=== PATIENT | female | born 1965 | race Caucasian/White ===

== ENCOUNTER 2021-03-04 13:30 | Emergency (ER) | payer BC, SELFPAY ==
--- NOTE | ~2021-03-04 | XR_ITS ---
EXAMINATION: XR tibia fibula LT 2V DATE: 03/04/2021 13:54 INDICATION: Left lower leg injury. TECHNIQUE: 2 views of left tibia and fibula were obtained. COMPARISON: None. FINDINGS: Bone alignment is normal. No fracture. There is mild left knee osteoarthritis. There is sof t tissue swelling anterior to tibial diaphysis. IMPRESSION: 1. No fracture. Reviewed, dictated and finalized at location A. IMPRESSION: 1. No fracture.
[2021-03-04 13:38] VITALS: BP 148/84; PULSE 113; RESP 16; TEMP 36.9; O2SAT 98
--- NOTE | 2021-03-04 13:39 | ED.LOWEXIN ---
HPI - Extremity Injury (Lower) General Chief Complaint: Extremity Injury, Lower Stated Complaint: left leg injury Time Seen by Provider: 03/04/21 13:42 Source: patient and RN notes reviewed Mode of arrival: ambulatory Limitations: no limitations History of Present Illness HPI Narrative: 56-year-old female presents with concern for injury to her left anterior lower leg. Reports she fell and hit the leg on a wooden ramp 5 days ago causing bruising, laceration. She reports anterior swelling. Reports no pain at rest or to touch. Reports some pain with initial weightbearing, reports pain improves after walking. Reports she has been using Neosporin and a bandage. She denies any redness, purulent drainage. Reports clear drainage. MD complaint: leg injury Related Data Home Medications Medication Instructions Recorded Confirmed diltiazem HCl 240 mg PO DAILY 03/04/21 03/04/21 pantoprazole 40 mg PO QAM 03/04/21 03/04/21 Allergies Allergy/AdvReac Type Severity Reaction Status Date / Time amoxicillin [From Amoxil] Allergy Hives Verified 03/04/21 13:47 Review of Systems Review of Systems: Narrative: CONSTITUTIONAL: Denies malaise, chills, sweats, or fever. CARDIOVASCULAR: Denies chest pain, palpitations, or edema. RESPIRATORY: Denies cough or dyspnea. SKIN: Reports anterior left lower leg abrasion, swelling, bruising MUSCULOSKELETAL: Reports left lower leg pain NEUROLOGIC: Denies numbness, weakness All systems reviewed & are unremarkable except as noted in HPI and below PMFSH Comments At time of signature, agree with nursing past medical, surgical, social and family history. There is no relevant family history pertinent to the presenting complaint Exam Narrative: Exam Narrative: GENERAL: Well-appearing, well-nourished, and in no acute distress. HEAD: Normocephalic, atraumatic. EYES: PERRLA, conjunctivae clear NECK: Supple. CHEST: Speaks in full sentences. No respiratory distress. HEART: Regular rate and rhythm. Normal and equal peripheral pulses. EXTREMITIES: Left leg has normal strength and sensation, normal range of motion. 13 x 8 anterior localized edema and ecchymosis consistent with hematoma. Normal sensation with sensitivity to light touch and pain. No point tenderness. No open wounds, no skin tenting, no devitalized tissue or atrophy, no trophic changes, no obvious deformity, alignment normal, nearby joints and structures intact. Distal pulses palpable and equal bilaterally, skin warm, dry, pink. Capillary refill less than 3 seconds. SKIN: Warm, dry, no rash. NEURO: Alert and oriented x3. PSYCH: Normal mood and affect Course Course Emergency Course: Patient is aware of diagnosis, understands and agrees to treatment plan. Anticipatory guidance given. Patient agrees to follow-up as directed and is aware of reasons to seek care at the emergency department. Portions of this record may have been created with voice recognition software Vital Signs Vital signs: Reviewed. MDM - Extremity Injury (Lower) MDM Narrative Medical decision making narrative: Patients injury and pain is consistent with musculoskeletal etiology. No signs of neurological or vascular compromise on exam. Compartments and tissues are soft without signs of compartment syndrome. Pain is felt appropriate for further evaluation on an outpatient basis. Imaging Data My impression: Images reviewed, interpreted by radiologist, agree, see report. Radiologist's impression: EXAMINATION: XR tibia fibula LT 2V DATE: 03/04/2021 13:54 INDICATION: Left lower leg injury. TECHNIQUE: 2 views of left tibia and fibula were obtained. COMPARISON: None. FINDINGS: Bone alignment is normal. No fracture. There is mild left knee osteoarthritis. There is soft tissue swelling anterior to tibial diaphysis. IMPRESSION: 1. No fracture. Critical Care Time Critical Care Time Critical Care Time: No Discharge Plan Discharge Clinical Impression: Hematoma of left lower
== END 2021-03-04 14:14 | disposition home or self-care (01) ==
PROVIDERS: Emergency Provider Nurse Practitioner; PCP Internal Medicine Geriatric Medicine
DX: S80.12XA Contusion of left lower leg, initial encounter (principal); W19.XXXA Unspecified fall, initial encounter; I10 Essential (primary) hypertension; K21.9 Gastro-esophageal reflux disease without esophagitis; Z90.711 Acquired absence of uterus with remaining cervical stump; Z85.41 Personal history of malignant neoplasm of cervix uteri
CPT/HCPCS: 73590; 99213; G0463

== ENCOUNTER 2025-03-05 13:50 | Emergency (ER) | payer BC, SELFPAY ==
[2025-03-05 13:53] VITALS: BP 147/106; PULSE 94; RESP 16; TEMP 36.4; O2SAT 99
[2025-03-05 13:58] VITALS: BP 179/104
--- OUTSIDE RECORDS SUMMARY | 2025-03-05 14:03 | XMS_ITS | Encounter Summary ---
Author Organization [facility] Address [address] [place] [address] Phone Care Team Providers Care Rn Pediatric Icu Name Role Phone Senait Campa APRN, CNP Primary Care Provid er Reason for Visit * Reason Comments Medication Refill Encounter Details Date Type Department Care Team (Late st Contact Info) Description 05/21/2024 Refill [facility] - [facility] Medicine [facility] [address] [place] [id number] Cezar Barclay MD [address] [id number] Medication Refill Social History Tobacco Use Types Packs/Day Years Used Date Smoking Tobacco: Every Day Cigarettes 1 30 Smokeless Tobacco: Never Alcohol Use Standard Drinks/Week Comments Yes 7 (1 standard drink = 0.6 oz pur e alcohol) 2-3 cocktails per night [facility] Utilities Answer Date Recorded In the past 12 months has [facility] electric, gas, oil, or water company threatened to shut off services in your home? No 11/20/2023 Social Connection and Isolation Panel Answer Date Recorded In a typical week, how many times do you talk on the phone with family, friends, or neighbors? More than three times a week 11/20/2023 How often do you get togethe r with friends or relatives? Three times a week 11/20/2023 How often do you attend [facility] or hoahaoism services? More than 4 times per year 11/20/2023 Do you belong to any clubs o r organizations such as cheondoism groups, unions, fraternal or athletic groups, or school groups? Yes 11/20/2023 How often do you attend meet ings of the clubs or organizations you belong to? More than 4 times per year 11/20/2023 Are you , , di vorced, , never , or living with a partner? Never 11/20/2023 AUDIT-C Answer Date Recorded Q1: How often do you have a drink containing alcohol? 4 or more times a week 11/20/2023 Q2: How many drinks containi ng alcohol do you have on a typical day when you are drinking? 1 or 2 Q3: How often do you have si x or more drinks on one occasion? Less than monthly 11/20/2023 Overall Financial Resource Strain (CARDIA) Answe r Date Recorded How hard is it for you to pa y for the very basics like food, housing, medical care, and heating? Not hard at all 11/20/2023 PHQ-2 Answer Date Recorded Total Score - Questions 1-9 0 10/27 [facility] - Occupational Stress Questionnaire Answer Date Recorded Do you feel stress - tense, restless, nervous, or anxious, or unable to sleep at night because your mind is troubled all the time - these days? Rather much 11/20/2023 Exercise Vital Sign Answer Date Recorde d On average, how many days pe r week do you engage in moderate to strenuous exercise (like a brisk walk)? 2 days 11/20/2023 On average, how many minutes do you engage in exercise at this level? 10 min 11/20/2023 Hunger Vital Sign Answer Date Recorded Within the past 12 months, y ou worried that your food would run out before you got the money to buy more. Never true 11/20/19 24 Within the past 12 months, t he food you bought just didn't last and you didn't have money to get more. Never true 11/20/2023 PRAPARE - Transportation Answer Date Re corded In the past 12 months, has l ack of transportation kept you from medical appointments or from getting medications? No 10/27 In the past 12 months, has l ack of transportation kept you from meetings, work, or from getting things needed for daily living? No 11/20/2023 Housing Stability Vital Sign Answer Ephraim e Recorded In the last 12 months, was t here a time when you were not able to pay the mortgage or rent on time? No 11/20/2023 In the last 12 months, how many places have you lived? 1 11/20/2023 In the last 12 months, was t here a time when you did not have a steady place to sleep or slept in a senior living (including now)? No 11/20/2023 Education Answer Date Recorded What is the highest level of school you have completed or the highest degree you have received? Associate degree: occupational, technical, or vocational program 04/04/2022 Sexually Active Control Partners Comments Not Currently Comments No Sex and Gender Information Value Date Recorded Sex Assigned at Not on file Legal Sex Female 11:38 PM CDT Gender Identity Female 07/16/2023 1:26 PM [employer] Sexual Orientation Not on file documented as of this encounter Miscellaneous Notes * Telephone Encounter - Marcella Burch RN - 05/22/2024 8:22 AM CDT Images from the original note were not included. hydroCHLOROthiazide Dispensed Days Supply Quantity Provider Pharmacy HYDROCHLOROT 25MG TAB 05/16/2024 90 90 Cezar Barclay MD [facility] [id number] [facility] ... HYDROCHLOROTHIAZIDE 25 MG TAB 02/19/2024 90 90 Cezar Barclay MD [facility] [id number] [facility] documented in this encounter Plan of Treatment Upcoming Encounters Date Type Department Care Team (Late st Contact Info) Description 05/27/2025 2:30 PM CDT Office Visit [facility] - Family Medicine - [place] [address] [place] [phone] Senait Campa APRN, [employer] [address] [phone] documented as of this encounter Visit Diagnoses Not on filedocumented in this encounter Additional Health Concerns Assessment Noted Time PHQ-9 Depression Total Score: 0 11/21/19 24 2:23 PM CDT documented as of this encounter Care Teams Rn Pediatric Icu Relationship Specialty Start Date End Date Senait Campa APRN, [facility] [address] [phone] PCP - General Advanced Practice Nurse 07/26/22 documented as of this encounter
--- OUTSIDE RECORDS SUMMARY | 2025-03-05 14:03 | XMS_ITS | Clinical Summary ---
Author Organization [facility] Address [address] [place] [address] Care Team Providers Care Aba Tutor Name Role Phone Nazia Terry MD Unavailable Sagrario Long MD Unavailable [phone] Senait Campa NP Primary Care Provider + Allergies Active Allergy Reactions Criticality Noted Date Comments Amoxicillin Rash Medium Losartan Diarrhea Low 04/24/2019 Medications b complex vitamins capsule Take 1 capsule by mouth daily. Active cyanocobalamin (Vitamin B-12) 1,000 mcg tablet Take 1 tablet (1,000 mcg total) by mouth daily 90 tablet 3 0 Active ammonium lactate (AMLACTIN) 12 % creamIndication s:Dry skin dermatitis APPLY TO AFFECTED AREA EVERY DAY 385 g [address] (PROTONIX) 40 mg EC tabletIndicatio ns:GERD with stricture Take 1 tablet (40 mg total) by mouth daily 90 tablet 3 1 Active cholecalciferol (VITAMIN D-3) 2000 unit capsule TAKE 1 CAPSULE BY MOUTH EVERY DAY 90 capsule 3 1 Active albuterol HFA (PROVENTIL HFA,VENTOLIN HFA,PROAIR HFA) 90 mcg/actuation inhalerIndicati ons:Wheezing INHALE 2 PUFFS EVERY 4 HOURS NEEDED FOR WHEEZING OR SHORTNESS OF BREATH 8.5 Inhaler 1 Active fluticasone propionate (FLONASE) 50 mcg/actuation nasal sprayIndication s:Chronic rhinitis USE 2 SPRAYS IN EACH NOSTRIL ONCE DAILY 48 mL 3 1 Active venlafaxine XR (EFFEXOR-XR) 37.5 mg 24 hr capsuleIndicati ons:Night sweats TAKE 1 CAPSULE BY MOUTH EVERY DAY 90 capsule 1 Active dilTIAZem CD 240 mg 24 hr capsuleIndicati ons:Benign hypertension,Pa lpitations TAKE 1 CAPSULE BY MOUTH NIGHTLY 90 capsule 1 1 Active Active Problems Problem Noted Date Diagnosed Date Hematoma 03/23/2021 Left elbow pain 06/23/2020 Palpitations 06/23/2020 Night sweats 04/07/2020 Elevated LFTs 04/07/2020 History of adenomatous polyp of colon 10/31/2019 Overview (10/31/2019): Added automatically from request for surgery [id number] Family history of colon cancer in mother 020 Overview (10/31/2019): Added automatically from request for surgery [id number] Menopausal syndrome (hot flashes) 09/20/2017 Benign hypertension 06/28/2017 Chronic rhinitis 06/24/2017 Knee pain 02/01/2017 Family history of colon cancer 01/11/2014 Overview (11/30/2016): Family history of colon cancer History of cervical cancer 01/11/2014 Overview (06/24/2017): Cervical cancer multicentric inside of [place] [address] Mcwilliams treated by Dr. Irizarry with vaginal hysterectomy 2008. Follow-up Pap smears test -[address] Mcwilliams Hx of adenomatous colonic polyps 01/11/2014 Overview (06/24/2017): Mother has Rectal cancer. Adenomatous colon polyp colonoscopy (+) 2008 Dr. Davis, colonoscopy test -[address] Peñaloza Tobacco dependence syndrome 01/11/2014 Overview (12/01/2016): Tobacco abuse GERD with stricture 01/11/2014 Overview (09/10/2017): GERD with stricture has required dilatation x2 2008, and 2014: 2008 GERD ring dilatation POSTPROCEDURE DIAGNOSES: 1. Dysphagia with evidence of distal esophageal ring, status post dilatation to 60 Vincentian. 2. Gastroesophageal reflux disease. Dr. Cruz Peñaloza 2013 EGD ring dilatation GERD (gastroesophageal reflux disease) lower esophageal ring 2013 PREPROCEDURE DIAGNOSES 1. Dysphagia to solids in a 48-year-old female. 2. Gastroesophageal reflux disease. POSTPROCEDURE DIAGNOSES 1. Distal esophageal ring with dysphagia to solids, status post balloon dilatation to the 20 mm balloon. 2. Gastroesophageal reflux disease with erosions to the distal esophagus. The patient also had a ringed appearance to her esophagus with whitish debris status post biopsies throughout. 3. Antritis with erosions with negative CLOtest. PHYSICIAN Cruz Peñaloza M.D. Mild chronic obstructive pulmonary disease 01/11 Overview (12/03/2016): COPD, mild Carcinoma of cervix 06/01/2012 Encounters Date Type Department Care Team Description 02/14/2025 1:40 PM CDT - 02/14/2025 11:59 PM CDT Hospital Encounter [facility] [address] [place] [address] Discharge Disposition: Discharge to home or self care 02/14/2025 1:39 PM CDT - 02/14/2025 11:59 PM CDT Hospital Encounter [facility]) [address] [place] [address] Discharge Disposition: Discharge to home or self care from Last 3 Months Immunizations Immunization Administration Dates Next Due MMR 05/08/2019 Tdap 03/12/2021,03/28/2010 Surgical History Surgery Date Site/Laterality Comments KNEE ARTHROSCOPY 08/28/1980 - 08/27/1981 BREAST BIOPSY 08/28/2006 - 08/27/2007 Left microcalcification otherwise (-) [facility] TOTAL VAGINAL HYSTERECTOMY 08/28/2006 - 08/27/2007 cervical cancer ARM SURGERY 08/28/1990 - 08/27/1991 Right fell through glass; large, deep laceration COLONOSCOPY W/ BIOPSIES AND POLYPECTOMY 03/28/2009 - 04/27/2009 (+) Dr. Peñaloza tubular adenoma due every 5 years POLYPECTOMY COLONOSCOPY 04/08/2015 Dr. Peñaloza (-) COLONOSCOPY 04/14/2020 (-) Dr. Long, due in 5 years family history of colon cancer Medical History Medical History Date Comments Cervical cancer (HCC) 08/31/2006 Dysphagia 2009 COPD (chronic obstructive pulmonary disease) (HC C) Hypertension GERD with stricture Colon polyp Family History Medical History Relation Name Comments Heart attack Father COD at age 56 Diabetes Maternal Grandmother Hypertension Maternal Grandmother Lung cancer Maternal Grandmother Stroke Maternal Grandmother Colon cancer Mother Diabetes Mother Hypertension Mother Heart attack Mother's Brother 1 Stroke Mother's Brother 2 Breast cancer Paternal Grandmother Hypertension Sister Relation Name Status Comments Father (Age 56) Maternal Grandmother Mother Mother's Brother 1 Mother's Brother 2 Paternal Grandmother Sister Social History Tobacco Use Types Packs/Day Years Used Date Smoking Tobacco: Every Day Cigarettes 0.7 38.5 Started: 1986 Smokeless Tobacco: Never Tobacco Cessation:Ready to Q uit: No; Counseling Given: Yes Alcohol Use Standard Drinks/Week Comments Yes 0 (1 standard drink = 0.6 oz pur e alcohol) AUDIT-C Answer Date Recorded Q1: How often do you have a drink containing alc ohol? 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 Not on file Not on file Not on file Obstetrics History Para Term AB IAB SAB Ectopic Multiple Livin g Live Births 0 0 0 0 0 0 0 0 0 0 0 Last Filed Vital Signs Vital Sign Reading Time Taken Comments Blood Pressure 160/104 04/07/2021 3:03 PM CDT Pulse 113 04/07/2021 3:03 PM CDT Temperature 36.6 C (97.8 F) 04/07/2021 3:03 PM CDT Respiratory Rate 18 04/07/2021 3:03 PM CDT Oxygen Saturation 97% 04/07/2021 3:03 PM CDT Inhaled Oxygen Concentration - - Weight 58.1 kg (128 lb) 04/07/2021 3:03 PM CDT Height 167.6 cm (5' 6) 03/23/2021 2:25 PM CDT Body Mass Index 20.66 03/23/2021 2:25 PM CDT Plan of Treatment Health Maintenance Due Date Last Done Comments Hepatitis B Screening 1983 Pneumococcal vaccine <65 (1 of 2 - PCV) 01/27/1984 Zoster Vaccine (1 of 2) 2015 Depression Screening 12/23/2021 12/23/2020 Regular Well Visit/Exam 18-64 12/23/2021, 10/30/2019, 09/04/2018, Additional history exists Influenza Vaccine (#1) 2025 11/21/2024 Breast Cancer Screening-Mammogram 06/20/2025 06/20/2024, 10/05/2022, 07/08/2021, Additional history exists Colon Cancer Screening-Colonoscopy 04/14/2030 04/14/2020, 04/08/2015, 04/08/2015 DTaP/Tdap/Td Vaccine (3 - Td or Tdap) 03/12/2031 03/12/2021, 03/28/2010 Cervical Cancer Screening Discontinued 11/15/2017 Hepatitis C Screening Completed 03/12/2020, 020 Colon Cancer Screening-CT Colonography Discontinued 04/14/2020, 04/08/2015, 04/08/2015 Colon Cancer Screening-DNA Stool Discontinued 04/14/2020, 04/08/2015, 04/08/2015 Colon Cancer Screening-FIT Discontinued 04/14, 04/08/2015, 04/08/2015 Colon Cancer Screening-Sigmoidoscopy Discontinued 04/14/2020, 04/08/2015, 04/08/2015 Procedures Procedure Name Priority Date/Time Associated Diagnosis Comments CT BODY OUTSIDE REFERENCE Routine 02/14/2025 1:[address] BODY OUTSIDE REFERENCE Routine 02/14/2025 1:39 PM CDT SCREENING MAMMOGRAM BILATERAL W BRADLEY Schedule Routine, Read Routine (OP Routine) 06/20/2024 1:53 PM CDT Screening mammogram, encounter for COLONOSCOPY 04/14/2020 7:31 AM CDT HEPATITIS C ANTIBODY Routine 03/12/2020 9:54 AM CDT Elevated liver function tests THINPREP IMAGING PAP AND HPV MRNA E6/E7 REFLEX HPV 16,18/45 Routine 11/15/2017 8:43 AM CDT from Last 3 Months or Most Recently Relevant to Health Maintenance Results * CT Body Outside Reference (02/14/2025 1:40 PM CDT) Impressions RAD_PACS_[facility] - 02/14/2025 1:40 PM CDT These images are for Reference purposes only and have not been reviewed by [facility]. There will be no report generated by a [facility] Radiologist. Narrative RAD_PACS_[facility] - 02/14/2025 1:40 PM CDT EXAMINATION: Images For Reference Purposes Only Cezar Blandon MD PhD IM CT PROCEDURES Desire l Result Performing Organization Address [facility] de Phone Number [facility] * CT Body Outside Reference (02/14/2025 1:39 PM CDT) Impressions RAD_[facility] - 02/14/2025 1:39 PM CDT These images are for Reference purposes only and have not been reviewed by [facility]. There will be no report generated by a [facility] Radiologist. Narrative RAD_PACS_[facility] - 02/14/2025 1:39 PM CDT EXAMINATION: Images For Reference Purposes Only Cezar Blandon MD PhD IMG CT PROCEDURES Desire l Result Performing Organization Address [facility] Co de Phone Number [facility]_P[facility] * Screening Mammogram Bilateral W Bradley (06/20/2024 1:53 PM CDT) Anatomical Region Laterality Modality Breast Bilateral Mammography Narrative 06/21/2024 12:38 PM CDT Mammogram Technique: Bilateral Digital Breast Tomosynthesis, Bilateral C-view 2D Screening mammogram. Views obtained: bilateral craniocaudal and bilateral mediolateral oblique. Computer Aided Detection was performed. Mammogram Findings: The present examination has been compared to prior imaging studies performed at [facility] on 05/28/2020, 07/08/2021 and 10/05/2022. The breasts are extremely dense, which lowers the sensitivity of mammography. There are calcifications in both breasts. There is no suspicious abnormality in either breast. Impression: There is no mammographic evidence of malignancy. Annual screening mammography is recommended. Consider breast MRI for supplemental screening given the patient's extremely dense breast tissue. OVERALL FINAL ASSESSMENT: BI-RADS CATEGORY 2: Benign. Procedure Note Celia Rahman MD - 06/21/2024 Mammogram Technique: Bilateral Digital Breast Tomosynthesis, Bilateral C-view 2D Screening mammogram. Views obtained: bilateral craniocaudal and bilateral mediolateral oblique. Computer Aided Detection was performed. Mammogram Findings: The present examination has been compared to prior imaging studies performed at [facility] on 05/28/2020, 07/08/2021 and 10/05/2022. The breasts are extremely dense, which lowers the sensitivity of mammography. There are calcifications in both breasts. There is no suspicious abnormality in either breast. Impression: There is no mammographic evidence of malignancy. Annual screening mammography is recommended. Consider breast MRI for supplemental screening given the patient's extremely dense breasttissue. OVERALL FINAL ASSESSMENT: BI-RADS CATEGORY 2: Benign. us Self Screening Mammogram IMG MAMMO PROCEDURES Fi nal Result * COLONOSCOPY (04/14/2020 7:31 AM CDT) Anatomical Region Laterality Modality Other Narrative Procedure Note Sagrario Long MD - 04/14/2020 7:31 AM CDT [facility] Patient Name: Stefani Verduzco Procedure Date: 04/14/2020 7:31 AM Date of : 1965 Admit Type: Outpatient Age: 55 Gender: Female Attending MD: Sagrario Long M.D. Room: [facility] ENDOSCOPY ROOM 1 Note Status: Finalized Patient Profile: This is a 55 year old female. The patient hashistory of adenoma polyps in the past. Her mother had colon cancer. Procedure: Colonoscopy Indications: Screening in patient at increased risk: Familyhistory of 1st-degree relative with colorectal cancer, High risk colon cancer surveillance: Personal history of colonic polyps, Last colonoscopy: March 2015 Referring MD: Renay Elmore M.D. Providers: Sagrario Long M.D. Impression: - The entire examined colon is normal. - Internal hemorrhoids. - No specimens collected. Recommendation: - Repeat colonoscopy in 5 years for screeningpurposes. - Continue present medications. Medicines: Monitored Anesthesia Care Complications: No immediate complications. Estimated Blood Loss: Estimated blood loss: none. Procedure: Pre-Anesthesia Assessment: - Prior to the procedure, a History and Physical was performed, and patient medications and allergieswere reviewed. The patient's tolerance of previous anesthesia was also reviewed. The risks and benefitsof the procedure and the sedation options and riskswere discussed with the patient. All questions were answered, and informed consent was obtained. Prior Anticoagulants: The patient has taken no previous anticoagulant or antiplatelet agents. ASA Grade Assessment: II - A patient with mild systemicdisease. After reviewing the risks and benefits, the patientwas deemed in satisfactory condition to undergo the procedure. The benefits, risks and alternatives of theprocedure and sedation were discussed and informed consent was obtained. All questions were answered. Please referto the signed informed consent document in the medical record. The bowel preparation used was Miralax. The bowel preparation used was bisacodyl tablets. Bowel prep was administered using a split dose. The scopewas passed under direct vision. The PediatricColonoscope [id number]-[id number] was introduced through the anusand advanced to the the cecum, identified by appendiceal orifice and ileocecal valve. The quality of thebowel preparation was excellent. Findings: The perianal and digital rectal examinations were normal. The cecum appeared normal. The colon (entire examined portion) appeared normal. No polyps and no mass lesions noted. Internal hemorrhoids were found during retroflexion. The hemorrhoids were small. Electronically signed by Sagrario Long M.D. Sagrario Long M.D. 04/14/2020 8:52:43 AM Number of Addenda: 0 Note Initiated On: 04/14/2020 7:31 AM Procedure Code(s): --- Professional --- 07622, Colonoscopy, flexible; diagnostic, including collection of specimen(s) by brushing or washing, when performed (separateprocedure) Diagnosis Code(s): --- Professional --- Z80.0, Family history of malignant neoplasm of digestive organs Z86.010, Personal history of colonic polyps K64.8, Other hemorrhoids CPT copyright 2017 [employer]. All rights reserved. The codes documented in this report are preliminary and upon hcc coders reviewmay be revised to meet current compliance requirements. Recognized by the [employer] for promoting quality in endoscopy Sagrario Long MD ENDOSCOPY PROCEDURES Final Result * Hepatitis C antibody (03/12/2020 9:54 AM CDT) Hep C Ab Nonreactive Nonreactive [facility] Comment: Interpretive Data Nonreactive: Antibodies to HCV not detected. Does NOT exclude the possibility of recent exposure to HCV. Equivocal: Equivocal for HCV antibodies. Supplemental molecular testing will be automatically performed to determine infection status in accordance with current CDC screening recommendations. Reactive: Positive for HCV antibodies. This may represent current or past HCV infection. Supplemental molecular testing will be automatically performed to determine current infection status in accordance with current CDC screening recommendations. Interpretive data was last revised on 2019. Blood specimen (specimen) 03/12/2020 9:54 AM CDT 03/12/2020 5:33 PM CDT Renay Elmore MD LAB MICROBIOLOGY - GENERAL ORDERABLES Edited Result - Final ANNITA [id number] [address] Department [place] [address] * ThinPrep Imaging Pap and HPV mRNA E6/E7 Reflex HPV 16,18/45 (11/15/2017 8:43 AM CDT) Report status CANCELED [facility] Comment:Result canceled by t yobani ancillary CLINICAL INFORMATION: [facility] Comment:Hysterectomy, total LMP NONE GIVEN [facility] Previous Pap NONE GIVEN [facility] Prev. Bx NONE GIVEN [facility] SOURCE: [facility] Comment:Cervix, Endocervix Pap, specimen adequacy [facility] Comment: SATISFACTORY FOR EVALUATION Source inconsistent with history provided Pap, general categorization CANCELED [facility] Comment:Result canceled by t yobani ancillary HPV interp [facility] Comment:Negative for intraep ithelial lesion or malignancy. Infection: CANCELED [facility] Comment:Result canceled by t yobani ancillary COMMENTS [facility] Comment: This Pap test has been evaluated with computer assisted technology. Cultural Centre Manager [facility] Comment: MIMA, CT(ASCP) CT screening location: [place] [address] Administration [place] [address] Review piercer CANCELED [facility] - Comment:Result canceled by t he ancillary Pathologist CANCELED [facility] - Comment:Result canceled by t he ancillary Comment [facility] - Comment: EXPLANATORY NOTE: The Pap is a screening test for cervical cancer. It is not a diagnostic test and is subject to false negative and false positive results. It is most reliable when a satisfactory sample, regularly obtained, is submitted with relevant clinical findings and history, and when the Pap result is evaluated along with historic and current clinical information. Human papillomavirus RNA, High Risk E6/E7 Not Detected Not Detected [facility] Comment: This test was performed using the APTIMA HPV Assay ([employer] This assay detects E6/E7 viral messenger RNA (mRNA) from 14 high-risk HPV types (16,18,31,33,35,39,45,51,52,56,58,59,66,68). 11/15/2017 8:43 AM CDT 11/16/2017 5:10 AM CDT Narrative Resulting Agency Comment Performing Organization Information: Site ID: Name: [facility] Address: [facility] Administration [place] [address] Director: Erica Terrell MD Renay Elmore MD LAB CYTOLOGY ORDERABLES Fi nal Result [facility] [place] from Last 3 Months or Most Recently Relevant to Health Maintenance Insurance [facility] [place] ACCESS OOS BLUE ACCESS OOS BLUE ACCESS OOS Member Subscriber Plan / Payer ( fective 2014-Present) Name:Stefani Verduzco Relation to Subscriber:Self Name:Stefani Verduzco Payer ID:[id number] ([facility]) Type:BC ALLIANCE Address: [facility] [id number] [place] [id number] Advance Directives For more information, please contact: [phone] Documents on File Type Date Recorded Patient Medical Assembly Expl anation ADVANCE DIRECTIVE 05/24/2011 POWER OF A TTORNEY ADVANCE DIRECTIVE 05/24/2011 POWER OF A TTORNEY-MEDICAL * Full Code (Latest Code Status on File) Date Activated Date Inactivated Comments 04/14/2020 7:39 AM 04/14/2020 1:34 PM * Full Code Date Activated Date Inactivated Comments 04/14/2020 7:39 AM 04/14/2020 7:39 AM Care Teams Aba Tutor Relationship Specialty Start Date End Date Senait Campa NP [address] [place] [address] [place] [address] PCP - General Nurse Practitioner 10/05/22 Nazia Terry MD [address] [place] [address] Director Life Sales Obstetrics and Gynecology 12/23/20 Sagrario Long MD [address] [place] [address] Consulting Physician Gastroenterology 12/23/20
--- OUTSIDE RECORDS SUMMARY | 2025-03-05 14:03 | XMS_ITS | Encounter Summary ---
Author Organization [facility] Address [address] [place] [address] Phone Care Team Providers Care Pest Control Specialist Name Role Phone Senait Campa APRN, CNP Primary Care Provid er Reason for Visit * Reason Onset Date Comments Shortness of Breath 09/27/2022 Encounter Details Date Type Department Care Team (Late st Contact Info) Description 09/27/2022 Telephone [facility] [address] [place] [address] Senait Campa APRN, [place] [address] [address] Shortness of Breath Social History Tobacco Use Types Packs/Day Years Used Date Smoking Tobacco: Every Day Cigarettes 1 30 Smokeless Tobacco: Never Alcohol Use Standard Drinks/Week Comments Yes 7 (1 standard drink = 0.6 oz pur e alcohol) PHQ-2 Answer Date Recorded Total Score - Questions 1-9 2 02/26 Education Answer Date Recorded What is the highest level of school you have completed or the highest degree you have received? Associate degree: occupational, technical, or vocational program 04/04/2022 Sexually Active Control Partners Comments Not Currently Comments No Sex and Gender Information Value Date Recorded Sex Assigned at Not on file Legal Sex Female 11:38 PM CDT Gender Identity Female 07/16/2023 1:26 PM [employer] Sexual Orientation Not on file COVID-19 Exposure Response Date Recorded In the last 10 days, have yo u been in contact with someone who was confirmed or suspected to have Coronavirus/COVID-19? No / Unsure 09/30/2022 3:34 PM KILN CLEANER documented as of this encounter Miscellaneous Notes * Telephone Encounter - Meredith Rush CNA - 09/27/2022 2:15 PM KILN CLEANER Patient states she is in touch with her office. CLEANER * Telephone Encounter - Christine Bishop APRN, CNP - 09/27/2022 1:58 PM KILN CLEANER She is not a patient in this office CLEANER * Telephone Encounter - Cheyanne Zamora RN - 09/27/2022 1:47 PM CST Patient is returning a missed call from the office. No documentation in EMR about a call today. Patient is aware of all other phone notes, and was seen yesterday in the office. She is wanting an appointment for a breathing treatment in the office today, as she is no different from yesterday when she was seen. No new or worsening symptoms to triage. No appointments available today. Please advise. CLEANER documented in this encounter Plan of Treatment Upcoming Encounters Date Type Department Care Team (Late st Contact Info) Description 05/27/2025 2:30 PM CDT Office Visit [facility] - Family Medicine - [place] [address] [place] [address] Senait Campa APRN, PHYSICAL TRAINER [address] [phone] documented as of this encounter Visit Diagnoses Not on filedocumented in this encounter Additional Health Concerns Infection Onset Date Last Indicated Resolved Time COVID - 19 10/27/2022 10/27/2022 10/28/2022 9:04 AM KILN CLEANER Respiratory Rule Out - RPA 10/27/2022 10/28/2022 0 10/28/2022 3:53 PM KILN CLEANER Assessment Noted Time PHQ-9 Depression Total Score: 2 03/25/20 22 4:00 PM CDT documented as of this encounter Care Teams Pest Control Specialist Relationship Specialty Start Date End Date Senait Campa APRN, PHYSICAL TRAINER [address] [phone] PCP - General Advanced Practice Nurse 07/26/22 documented as of this encounter
--- OUTSIDE RECORDS SUMMARY | 2025-03-05 14:03 | XMS_ITS | Encounter Summary ---
Author Organization [facility] Address [address] [place] [address] Phone Care Team Providers Care Analytics Intern Name Role Phone Senait Campa APRN, EDWIN Primary Care Provid er Reason for Visit * Reason Comments Medication Refill Encounter Details Date Type Department Care Team (Late st Contact Info) Description 05/21/2024 Refill [facility] - Family Medicine [facility] [address] [place] [address] Stefani Regalado PAC [address] [place] [address] Medication Refill Social History Tobacco Use Types Packs/Day Years Used Date Smoking Tobacco: Every Day Cigarettes 1 30 Smokeless Tobacco: Never Alcohol Use Standard Drinks/Week Comments Yes 7 (1 standard drink = 0.6 oz pur e alcohol) 2-3 cocktails per night [facility] Utilities Answer Date Recorded In the past 12 months has [employer] electric, gas, oil, or water company threatened [...] week 11/20/2023 How often do you attend chur ch or faith services? More than 4 times per year 11/20/2023 Do you belong to any clubs o r organizations such as jain groups, unions, fraternal or athletic groups, or [...] Total Score - Questions 1-9 0 10/27 [facility] of Occupat ional [facility] - Occupational Stress Questionnaire Answer Date Recorded [...] place to sleep or slept in a retirement (including now)? 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 traZODone HCl Dispensed Days Supply Quantity Provider Pharmacy TRAZODONE 100MG TAB 05/16/2024 90 90 Tab Stefani Regalado, PAC [facility] ... TRAZODONE 100 MG TABLET 02/12/2024 90 90 Stefani Regalado, PAC [facility] ... documented in this encounter Plan of Treatment Upcoming Encounters Date Type Department Care Team (Late st Contact Info) Description 05/27/2025 2:30 PM CDT [facility] - [place] [address] [place] [address] Senait Campa APRN, PSYCHOLOGICAL TESTS SALES AGENT #[address] [address] documented as of this encounter Visit Diagnoses Diagnosis Primary insomnia Persistent disorder of initiating or maintaining sleep documented in this encounter Additional Health Concerns Assessment Noted Time PHQ-9 Depression Total Score: 0 11/21/19 24 2:23 PM CDT documented as of this encounter Care Teams Analytics Intern Relationship Specialty Start Date End Date Senait Campa APRN, PSYCHOLOGICAL TESTS SALES AGENT #[address] [address] PCP - General Advanced Practice Nurse 07/26/22 documented as of this encounter
--- OUTSIDE RECORDS SUMMARY | 2025-03-05 14:03 | XMS_ITS | Encounter Summary ---
Author Organization [facility] Address [address] [place] [address] Phone Care Team Providers Care Pediatric Neurologist Name Role Phone Senait Campa APRN, CNP Primary Care Provid er Reason for Visit * Reason Comments Medication Refill Encounter Details Date Type Department Care Team (Late st Contact Info) Description 10/21/2023 [facility]ill [facility] [address]2 [place] [phone] Cezar Barclay MD #[address] [address] Medication Refill Social History Tobacco Use Types Packs/Day Years Used Date Smoking Tobacco: Every Day Cigarettes 1 30 Smokeless Tobacco: Never Alcohol Use Standard Drinks/Week Comments Yes 7 (1 standard drink = 0.6 oz pur e alcohol) 2-3 cocktails per night PHQ-2 Answer Date Recorded Total Score - [...] CDT Gender Identity Female 07/16/2023 1:26 PM 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 hydroCHLOROthiazide Dispensed Days Supply Quantity Provider Pharmacy HYDROCHLOROTHIAZIDE 25 MG TAB 10/12/2023 90 90 Each Cezar Barclay MD [facility] [address] [facility] ... HYDROCHLOROTHIAZIDE 25 MG TAB 07/17/2023 90 90 Each Cezar Barclay MD [facility] [address] [facility] ... 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 DESIGNER documented in this encounter Plan of Treatment Upcoming Encounters Date Type Department Care Team (Late st Contact Info) Description 05/27/2025 2:30 PM CDT Office Visit [facility] Group - Family Medicine [facility] [address]2 [place] [address] Senait Campa APRN, EDWIN #[address] [address] documented as of this encounter Visit Diagnoses Not on filedocumented in this encounter Additional Health Concerns Assessment Noted Time PHQ-9 Depression Total Score: 2 03/25/20 22 4:00 PM CDT documented as of this encounter Care Teams Pediatric Neurologist Relationship Specialty Start Date End Date Senait Campa APRN, CNP [address] [address] PCP - General Advanced Practice Nurse 07/26/22 documented as of this encounter
--- OUTSIDE RECORDS SUMMARY | 2025-03-05 14:03 | XMS_ITS | Encounter Summary ---
Author Organization [facility] Address [address] [place] [address] Phone Care Team Providers Care Bone Grinder Name Role Phone Senait Campa APRN, CNP Primary Care Provid er Reason for Visit * Reason Onset Date Comments Medication Refill 03/05/2025 Encounter Details Date Type Department Care Team (Late st Contact Info) Description 03/05/2025 MyChart RX Renewal [facility] - Family Medicine [facility] [address] [place] [address] Senait Campa APRN, CNP [address] [address] Medication Renewal Request Social History Tobacco Use Types Packs/Day Years Used Date Smoking Tobacco: Every Day Cigarettes 1 30 Smokeless Tobacco: Never Alcohol Use Standard Drinks/Week Comments Yes 9 (1 standard drink = 0.6 oz pure alcohol) 2-3 cocktails at night occasionally [facility] Utilities Answer Date Recorded In the past 12 months has [employer], gas, oil, or water company threatened to shut off services in your home? No 11/21/2024 Social Connection and Isolation Panel Answer Date Recorded In a typical week, how many times do you talk on the phone with family, friends, or neighbors? More than three times a week 11/21/2024 How often do you get togethe r with friends or relatives? Three times a week 11/21/2024 How often do you attend chur ch or protestant services? More than 4 times per year 11/21/2024 Do you belong to any clubs o r organizations such as latter-day groups, unions, fraternal or athletic groups, or school groups? Yes 11/21/2024 How often do you attend meet ings of the clubs or organizations you belong to? More than 4 times per year 11/21/2024 Are you , , di vorced, , never , or living with a partner? Never 11/21/2024 AUDIT-C Answer Date Recorded Q1: How often do you have a drink containing alcohol? 4 or more times a week 11/21/2024 Q2: How many drinks containi ng alcohol do you have on a typical day when you are drinking? 3 or 4 Q3: How often do you have si x or more drinks on one occasion? Monthly 11/21/2024 Overall Financial Resource Strain (CARDIA) Answe r Date Recorded How hard is it for you to pa y for the very basics like food, housing, medical care, and heating? Not hard at all 11/21/2024 PHQ-2 Answer Date Recorded Total Score - Questions 1-9 0 10/27 [facility] of Occupat ional Health - Occupational Stress Questionnaire Answer Date Recorded Do you feel stress - tense, restless, nervous, or anxious, or unable to sleep at night because your mind is troubled all the time - these days? Rather much 11/21/2024 Exercise Vital Sign Answer Date Recorde d On average, how many days pe r week do you engage in moderate to strenuous exercise (like a brisk walk)? 5 days 11/21/2024 On average, how many minutes do you engage in exercise at this level? 10 min 11/21/2024 Hunger Vital Sign Answer Date Recorded Within the past 12 months, y ou worried that your food would run out before you got the money to buy more. Never true 11/22/19 25 Within the past 12 months, t he food you bought just didn't last and you didn't have money to get more. Never true 11/21/2024 PRAPARE - Transportation Answer Date Re corded In the past 12 months, has l ack of transportation kept you from medical appointments or from getting medications? No 10/27 In the past 12 months, has l ack of transportation kept you from meetings, work, or from getting things needed for daily living? No 11/21/2024 Housing Stability Vital Sign Answer Ephraim e [...] place to sleep or slept in a group home (including now)? No 11/20/2023 Housing Stability Vital Sign Answer Ephraim e Recorded In the last 12 months, was t here a time when you were not able to pay the mortgage or rent on time? No 01/08/2025 In the past 12 months, how m any times have you moved where you were living? 0 01/08/2025 At any time in the past 12 m [facility], were you homeless or living in a group home (including now)? No 01/08/2025 Education Answer Date Recorded What is the highest level of school you have completed or the highest degree you have received? 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 Sexual Orientation Not on file documented as of this encounter Plan of Treatment Upcoming Encounters Date Type Department Care Team (Late st Contact Info) Description 05/27/2025 2:30 PM CDT Office Visit [facility] - Family Medicine - [place] [address] [place] [address] Senait Campa APRN, WARDROBE SPECIALIST [address] [address] documented as of this encounter Visit Diagnoses Not on filedocumented in this encounter Additional Health Concerns Assessment Noted Time PHQ-9 Depression Total Score: 0 11/22/19 25 2:05 PM CDT documented as of this encounter Care Teams Bone Grinder Relationship Specialty Start Date End Date Senait Campa APRN, EDWIN [address] [address] PCP - General Advanced Practice Nurse 07/26/22 documented as of this encounter
--- OUTSIDE RECORDS SUMMARY | 2025-03-05 14:03 | XMS_ITS | Referral Summary ---
Author Organization [facility] Address [address] [facility] [place] [address] Care Team Providers Care Lap Machine Tender Name Role Phone Nazia Terry MD Unavailable Sagrario Long MD Unavailable [phone] Senait Campa NP Primary Care Provider + Encounters Date Type Department Care Team Description 02/14/2025 1:40 PM CDT - 02/14/2025 11:59 PM CDT Hospital Encounter [facility] [address] [place] [address] Discharge Disposition: Discharge to home or self care 02/14/2025 1:39 PM CDT - 02/14/2025 11:59 PM CDT Hospital Encounter [facility]) [address] [place] [address] Discharge Disposition: Discharge to home or self care from Last 3 Months Allergies Active Allergy Reactions Criticality Noted Date [...] (10/31/2019): Added automatically from request for surgery [id number] Family history of colon cancer in mother 020 Overview (10/31/2019): Added automatically from request for surgery [id number] Menopausal syndrome (hot flashes) 09/20/2017 Benign hypertension [...] esophageal ring, status post dilatation to 60 [place]. 2. Gastroesophageal reflux disease. Dr. 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 There will be no report generated by a [facility] Radiologist. Narrative RAD_PACS_[facility] - 02/14/2025 1:40 PM CDT EXAMINATION: Images For Reference Purposes Only Cezar Blandon MD PhD IM CT PROCEDURES Desire l Result Performing Organization Address [facility] de Phone Number RAD_PACS_[facility] * CT Body Outside Reference (02/14/2025 1:39 PM CDT) Impressions RAD[facility] - 02/14/2025 1:39 PM CDT These images are for Reference purposes only and have not been reviewed by [facility] Radiology. There will be no report generated by a [facility] Radiologist. Narrative RAD_PACS_[facility] - 02/14/2025 1:39 PM CDT EXAMINATION: Images For Reference Purposes Only Cezar Blandon MD PhD IMG CT PROCEDURES Desire l Result Performing Organization Address [facility] Co de Phone Number RAD_PACS_[facility] * Screening [...] compared to prior imaging studies performed at [facility] on 05/28/2020, 07/08/2021 and 10/05/2022. The breasts [...] compared to prior imaging studies performed at [facility] on 05/28/2020, 07/08/2021 and 10/05/2022. The breasts [...] Female Attending MD: Sagrario Long M.D. Room: [facility] ENDOSCOPY ROOM 1 Note Status: Finalized Patient [...] passed under direct vision. The PediatricColonoscope [id number]-[id number] was introduced through the anusand advanced to [...] 7:31 AM Procedure Code(s): --- Professional --- 79323, Colonoscopy, flexible; diagnostic, including collection of specimen(s) by brushing or washing, when performed (separateprocedure) Diagnosis Code(s): --- Professional --- Z80.0, Family history of malignant neoplasm of digestive organs Z86.010, Personal history of colonic polyps K64.8, Other hemorrhoids CPT copyright 2017 [employer]. All rights reserved. The codes documented in this report are preliminary and upon head turning machine operator reviewmay be revised to meet current compliance requirements. Recognized by the [employer] for promoting quality [...] 9:54 AM CDT 03/12/2020 5:33 PM CDT us Renay Elmore MD LAB MICROBIOLOGY - GENERAL ORDERABLES Edited Result - Final ANNITA REDDY [address] [address] Department [place] [address] * ThinPrep Imaging Pap and HPV mRNA E6/E7 Reflex HPV 16,18/45 (11/15/2017 8:43 AM CDT) Report status CANCELED [facility] Comment:Result canceled by russ hilton ancillary CLINICAL INFORMATION: [facility] [...] has been evaluated with computer assisted technology. Walking Dragline Oiler [facility] - Comment: MIMA, CT(ASCP) CT screening location: [place] [address] [place] [address] Review machine sign writer CANCELED [facility] Comment:Result canceled by t yobani ancillary Pathologist CANCELED [facility] Comment:Result canceled by t yobani ancillary Comment [facility] Comment: EXPLANATORY NOTE: The Pap is a [...] High Risk E6/E7 Not Detected Not Detected [facility] - Comment: This test was performed using the APTIMA HPV Assay ([employer] This assay detects E6/E7 viral messenger RNA (mRNA) from 14 high-risk HPV types (16,18,31,33,35,39,45,51,52,56,58,59,66,68). 11/15/2017 8:43 AM CDT 11/16/2017 5:10 AM CDT Narrative Resulting Agency Comment Performing Organization Information: Site ID: Name: [facility] Address: [address] [address] Director: Erica Terrell MD Renay Elmore MD LAB CYTOLOGY ORDERABLES Fi nal Result [facility] [place] from Last 3 Months or Most Recently Relevant to Health Maintenance [place] [employer] [place] [employer] [facility] Adreima ACCESS OOS [employer] ACCESS OOS Advance Directives For more information, please contact: [phone] Documents on File Type Date Recorded Patient Salesperson Books Expl anation ADVANCE DIRECTIVE 05/24/2011 POWER OF A TTORNEY ADVANCE DIRECTIVE 05/24/2011 POWER OF A TTORNEY-MEDICAL * Full Code (Latest Code Status on File) Date Activated Date Inactivated Comments 04/14/2020 7:39 AM 04/14/2020 1:34 PM * Full Code Date Activated Date Inactivated Comments 04/14/2020 7:39 AM 04/14/2020 7:39 AM Care Teams Lap Machine Tender Relationship Specialty Start Date End Date Senait Campa, ZAIN [address] [place] [address] [address] [address] PCP - General Nurse Practitioner 10/05/22 Nazia Terry MD 1 [address] [address] Landfill Grader Obstetrics and Gynecology 12/23/20 Sagrario Long MD 1 [address] [address] Consulting Physician Gastroenterology 12/23/20
--- OUTSIDE RECORDS SUMMARY | 2025-03-05 14:03 | XMS_ITS | Encounter Summary ---
Author Organization [facility] Address [address] [place] [address] Phone Care Team Providers Care Shoddy Mill Worker Name Role Phone Senait Campa APRN, CNP Primary Care Provid er Reason for Visit * Reason Comments Medication Refill Encounter Details Date Type Department Care Team (Late st Contact Info) Description 09/25/2022 Refill [facility] [address]2 [place] [phone] Cezar Barclay MD [address] [address] Medication Refill Social History Tobacco Use Types [...] CDT Gender Identity Female 07/16/2023 1:26 PM CLINICAL ABSTRACTOR Sexual Orientation Not on file COVID-19 Exposure Response Date Recorded In the last 10 days, have gayatri clevel[place] been in contact with someone who was confirmed or suspected to have Coronavirus/COVID-19? No / Unsure 09/28/2022 10:09 AM CLINICAL ABSTRACTOR documented as of this encounter Functional Status * Question Answer Date of Assessment Author Little interest or pleasure in doing things Not at all 09/26/2022 12:00 PM Jose L Gonzalez RMA Feeling down, depressed, or hopeless Not at all 09/26/2022 12:00 PM CLINICAL ABSTRACTOR Jose L St RMA * Over the past 2 weeks, how often have you been bothered by any of the following problems? Question Answer Date of Assessment Author Patient Health Questionnaire -2 Score 0 09/26/2022 12:00 PM CLINICAL ABSTRACTOR Jose L St RMA documented as of this encounter Miscellaneous Notes * Telephone Encounter - Sharon Friend RMA - 09/29/2022 10:48 AM CLINICAL ABSTRACTOR Pt notified, vu ICAL ABSTRACTOR * Telephone Encounter - Sharon Friend RMA - 09/27/2022 1:40 PM CLINICAL ABSTRACTOR LVM ICAL ABSTRACTOR * Telephone Encounter - Marcella Burch RN - 09/26/2022 10:16 AM CST Patient did not due repeat CMP - order outstanding in chart. ICAL ABSTRACTOR * Telephone Encounter - Marcella Burch RN - 09/26/2022 10:16 AM CST Per nursing clinical judgement, provider to review and approve the medication(s) order(s) if appropriate. Requested Prescriptions Pending Prescriptions Disp Refills hydroCHLOROthiazide 25 MG Tablet [Pharmacy Med Name: HYDROCHLOROTHIAZIDE 25 MG TAB] 90 Tablet 0 Sig: TAKE 1 TABLET BY MOUTH EVERY DAY Diuretics Protocol Passed - 09/25/2022 12:04 AM Passed - Serum potassium on record in past 12 months POTASSIUM Date Value Ref Range Status 04/01/2022 3.5 3.5 - 5.1 mmol/L Final Passed - Serum sodium on record in past 12 months SODIUM Date Value Ref Range Status 04/01/2022 133 (L) 136 - 144 mmol/L Final Passed - Blood pressure on record in past 12 months Clinician-entered: BP Readings from Last 3 Encounters: 07/26/22 131/74 04/15/22 (!) 160/100 03/25/22 (!) 184/114 Patient-entered: No data recorded Passed - Visit with relevant provider in past 12 months or upcoming 90 days Recent Visits Date Type Provider Dept 07/26/22 Office Visit [facility] 04/15/22 Office Visit Senait Campa APRN, CNP [facility] 03/25/22 Office Visit Senait Campa APRN, CNP [facility] Showing recent visits within past 365 days and meeting all other requirements Future Appointments No visits were found meeting these conditions. Showing future appointments within next 90 days and meeting all other requirements Passed - GFR on record in past 12 months No results found for: GFRNA ICAL ABSTRACTOR documented in this encounter Plan of Treatment Upcoming Encounters Date Type Department Care Team (Late st Contact Info) Description 05/27/2025 2:30 PM CDT Office Visit [facility] - Family Medicine - [place] [address] [place] [address] Senait Campa APRN, EDWIN #[address] [address] documented as of this encounter Visit Diagnoses Not on filedocumented in this encounter Additional Health Concerns Infection Onset Date Last Indicated Resolved Time Respiratory Rule Out - RPA 09/26/2022 09/26/2022 0 09/26/2022 1:08 PM CLINICAL ABSTRACTOR COVID - 19 10/27/2022 10/27/2022 10/28/2022 9:04 AM CLINICAL ABSTRACTOR Respiratory Rule Out - RPA 10/27/2022 10/28/2022 0 10/28/2022 3:53 PM CLINICAL ABSTRACTOR Assessment Noted Time PHQ-9 Depression Total Score: 2 03/25/20 22 4:00 PM CDT documented as of this encounter Care Teams Shoddy Mill Worker Relationship Specialty Start Date End Date Senait Campa APRN, PROGRAMS DIRECTOR #[address] [address] PCP - General Advanced Practice Nurse 07/26/22 documented as of this encounter
--- OUTSIDE RECORDS SUMMARY | 2025-03-05 14:03 | XMS_ITS | Encounter Summary ---
Author Organization [facility] Address [address] [place] [address] Phone Care Team Providers Care Pug Machine Operator Name Role Phone Senait Campa APRN, CNP Primary Care Provid er Reason for Visit * Reason Comments Medication Refill Encounter Details Date Type Department Care Team (Late st Contact Info) Description 11/24/2024 Refill [facility] - [facility] [place] [address] Senait Campa APRN, CNP #[address] [address] Medication Refill Social History Tobacco Use Types Packs/Day Years Used Date Smoking Tobacco: Every Day Cigarettes 1 30 Smokeless Tobacco: Never Alcohol Use Standard Drinks/Week Comments Yes 9 (1 standard drink = 0.6 oz pure alcohol) 2-3 cocktails at night occasionally [facility] Utilities Answer Date Recorded In the past 12 months has [employer], gas, oil, or water company threatened to [...] 11/21/2024 How often do you attend chur or gnosticist services? More than 4 times per year 11/21/2024 Do you belong to any clubs o r organizations such as uatsdin groups, unions, fraternal or athletic groups, or [...] Total Score - Questions 1-9 0 10/27 [facility] of Occupat ional Health - Occupational Stress [...] place to sleep or slept in a fci (including now)? No 11/20/2023 Housing Stability Vital Sign Answer Ephraim e Recorded In the last 12 months, was t here a time when you were not able to pay the mortgage or rent on time? No 11/21/2024 Number of Times Moved in the Last Year Not on fi le 11/21/2024 At any time in the past 12 m [facility], were you homeless or living in a fci (including now)? No 11/21/2024 Education Answer Date Recorded What is the highest level of school you have completed or the highest degree you have received? 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 SOLUTION MAKER Sexual Orientation Not on file documented as of this encounter Miscellaneous Notes * Telephone Encounter - Marcella Burch RN - 11/25/2024 11:55 AM CDT duplicate documented in this encounter Plan of Treatment Upcoming Encounters Date Type Department Care Team (Late st Contact Info) Description 05/27/2025 2:30 PM CDT [facility] Visit [facility] - [facility] - [facility] [address] [place] [address] Senait Campa APRN, PL SQL PROGRAMMER #[address] [phone] documented as of this encounter Visit Diagnoses Not on filedocumented in this encounter Additional Health Concerns Assessment Noted Time PHQ-9 Depression Total Score: 0 11/22/19 25 2:05 PM CDT documented as of this encounter Care Teams Pug Machine Operator Relationship Specialty Start Date End Date Senait Campa APRN, PL SQL PROGRAMMER #[address] [address] PCP - General Advanced Practice Nurse 07/26/22 documented as of this encounter
--- OUTSIDE RECORDS SUMMARY | 2025-03-05 14:03 | XMS_ITS | Encounter Summary ---
Author Organization [facility] Address [address] [place] [address] Phone Care Team Providers Care Target Network Analyst Name Role Phone Renay Elmore MD Primary Care Provider + [phone] Jena Mcwilliams MD Unavailable [phone] Cruz Peñaloza Unavailable Unavail able Val Baker MD Unavailable [phone] Nazia Terry MD Unavailable [phone] Sagrario Long MD Unavailable [phone] Senait Campa NP Primary Care Provider + Encounter Details Date Type Department Care Team (Late st Contact Info) Description 12/07/2017 Orders Only [facility] [address] [place] [address] Renay Elmore MD [address] [place] [address] Social History Tobacco Use Types Packs/Day Years Used Date Smoking Tobacco: Every Day Cigarettes 0.5 38.5 Started: 1986 Smokeless Tobacco: Never Alcohol Use Standard Drinks/Week Comments Yes 0 (1 standard drink = 0.6 oz pur e alcohol) Comments No Sex and Gender Information Value Date Recorded Sex Assigned at Not on file Legal Sex Female 1:44 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 Gender Identity Not on file Sexual Orientation Not on file 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 Not on file Not on file Not on file documented as of this encounter Plan of Treatment Not on file documented as of this encounter Procedures Procedure Name Priority Date/Time Associated Diagnosis Comments SCAN - RADIOLOGY/IMAGING 12/07/2017 12:29 PM CDT documented in this encounter Results * SCAN - RADIOLOGY/IMAGING (12/07/2017 12:29 PM CDT) Anatomical Region Laterality Modality Other us Renay Elmore MD Final Resu lt documented in this encounter Visit Diagnoses Not on filedocumented in this encounter Additional Health Concerns Infection Onset Date Last Indicated Resolved Time COVID: Suspected 07/12/2020 07/12/2020 07/13/2020 9:58 PM RUBBER ENGRAVER Respiratory Infection (ALEXANDER), contact + droplet Comment:Automatically added due to negative COVID-19 result. 07/13/2020 07/13/2020 07/27/2020 3:0 8 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 documented as of this encounter Care Teams Target Network Analyst Relationship Specialty Start Date End Date Renay Elmore MD PCP - General 11/25/16 10/04/22 Senait Campa NP [address] [address] PCP - General Nurse Practitioner 10/05/22 Jena Mcwilliams MD [phone] [place] [address] Consulting Physician Gynecologic Oncology 06/24/1711/27 Cruz Peñaloza [address] [phone] [place] [address] Gastroenterology 06/28/17 12/22/20 Val Baker MD [address] [place] [address] Billiard Table Repairer Obstetrics and Gynecology 09/20/17 12/22/20 Nazia Terry MD [address] [place] [address] Billiard Table Repairer Obstetrics and Gynecology 12/23/20 Sagrario Long MD [address] [place] [address] Consulting Physician Gastroenterology 12/23/20 documented as of this encounter
--- OUTSIDE RECORDS SUMMARY | 2025-03-05 14:03 | XMS_ITS | Encounter Summary ---
Author Organization [facility] Address [address] [place] [address] Phone Care Team Providers Care Hadoop Software Engineer Name Role Phone Senait Campa APRN, CNP Primary Care Provid er Reason for Visit * Reason Comments Medication Refill Encounter Details Date Type Department Care Team (Late st Contact Info) Description 05/18/2024 Refill [facility] Medical Group - Family Medicine [facility] [address] [place] [address] Senait Campa APRN, CNP #[address] [address] Medication Refill Social History Tobacco Use Types Packs/Day Years Used Date Smoking Tobacco: Every Day Cigarettes 1 30 Smokeless Tobacco: Never Alcohol Use Standard Drinks/Week Comments Yes 7 (1 standard drink = 0.6 oz pur e alcohol) 2-3 cocktails per night [facility] Utilities Answer Date Recorded In the past 12 months has [employer], gas, oil, or water company threatened to [...] often do you attend chur ch or shinto services? More than 4 times per year 11/20/2023 Do you belong to any clubs o r organizations such as catholic groups, unions, fraternal or athletic groups, or [...] Total Score - Questions 1-9 0 10/27 [facility] of Occupat ional Health - Occupational [...] place to sleep or slept in a long term (including now)? 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 Albuterol Sulfate Dispensed Days Supply Quantity Provider Pharmacy ALBUTEROL HFA 90 MCG INHALER 04/30/2024 25 6.7 g Senait Campa APRN, [id number] ... As needed inhaler documented in this encounter Plan of Treatment Upcoming Encounters Date Type Department Care Team (Late st Contact Info) Description 05/27/2025 2:30 PM CDT [facility] Visit [facility] - [facility] [address] [place] [phone] Senait Campa APRN, PROCESSING LEAD #[address] [phone] documented as of this encounter Visit Diagnoses Not on filedocumented in this encounter Additional Health Concerns Assessment Noted Time PHQ-9 Depression Total Score: 0 11/21/19 24 2:23 PM CDT documented as of this encounter Care Teams Hadoop Software Engineer Relationship Specialty Start Date End Date Senait Campa APRN, [facility] #[address] [phone] PCP - General Advanced Practice Nurse 07/26/22 documented as of this encounter
--- OUTSIDE RECORDS SUMMARY | 2025-03-05 14:03 | XMS_ITS | Encounter Summary ---
Author Organization [facility] Healthcare Address [address] [place] [address] Care Team Providers Care Psychiatric Aides Teacher Name Role Phone Renay Elmore MD Primary Care Provider +- [phone] Nazia Terry MD Unavailable [phone] Sagrario Long MD Unavailable [phone] Senait Campa NP Primary Care Provider + Reason for Visit * Reason Onset Date Comments Scheduling Appointments 01/19/2021 no malia r to confirm appointment Encounter Details Date Type Department Care Team (Late st Contact Info) Description 01/19/2021 Telephone [facility] [address] [place] [address] Betsey Burgess, Scheduling Appointments (no answer to confirm appointment ) Social History Tobacco Use Types Packs/Day Years Used Date Smoking Tobacco: Every Day Cigarettes 0.5 38.5 Started: 1986 Smokeless Tobacco: Never Alcohol Use Standard Drinks/Week Comments Yes 0 (1 standard drink = 0.6 oz pur e alcohol) PHQ-2 Answer Date Recorded PHQ-2 Total Score (If total score is 3 or more points, staff should administer the PHQ-9) 0 12/23/2020 Comments No Sex and Gender Information Value Date Recorded Sex Assigned at Not on file Legal Sex Female 1:44 AM ELECTRICIAN 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 Gender Identity Not on file Sexual Orientation Not on file 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 Not on file Not on file documented as of this encounter Plan of Treatment Not on file documented as of this encounter Visit Diagnoses Not on filedocumented in this encounter Care Teams Psychiatric Aides Teacher Relationship Specialty Start Date End Date Renay Elmore MD PCP - General 11/25/16 10/04/22 Senait Campa NP [address] [place] [place] [address] [address] [address] PCP - General Nurse Practitioner 10/05/22 Nazia Terry MD [address] [place] [address] Lubricating Machine Tender Obstetrics and Gynecology 12/23/20 Sagrario Long MD [address] [place] [address] Consulting Physician Gastroenterology 12/23/20 documented as of this encounter
--- OUTSIDE RECORDS SUMMARY | 2025-03-05 14:03 | XMS_ITS | Encounter Summary ---
Author Organization [facility] Address [address] [place] [address] Phone Care Team Providers Care Cryptographic Vulnerability Analyst Name Role Phone Senait Campa APRN, CNP Primary Care Provid er Reason for Visit * Reason Comments Medication Refill Encounter Details Date Type Department Care Team (Late st Contact Info) Description 02/12/2024 Refill [facility] Medical Group - Family Medicine [facility] [address] [place] [address] Senait Campa APRN, CNP #[address] [address] Medication Refill Social History Tobacco Use Types Packs/Day Years Used Date Smoking Tobacco: Every Day Cigarettes 1 30 Smokeless Tobacco: Never Alcohol Use Standard Drinks/Week Comments Yes 7 (1 standard drink = 0.6 oz pur e alcohol) 2-3 cocktails per night [facility] Utilities Answer Date Recorded In the past 12 months has [employer], gas, oil, or water company threatened to [...] often do you attend chur ch or pentecostal services? More than 4 times per year 11/20/2023 Do you belong to any clubs o r organizations such as yazidi groups, unions, fraternal or athletic groups, or [...] Total Score - Questions 1-9 0 10/27 [facility] of Occupat ional Health - Occupational [...] place to sleep or slept in a longterm (including now)? 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 Requested Prescriptions Pending Prescriptions Disp Refills traZODone (DESYREL) 100 MG Tablet [Pharmacy Med Name: TRAZODONE 100 MG TABLET] 90 Tablet 1 Sig: TAKE 1 TABLET BY MOUTH EVERY DAY AT NIGHT Serotonin Modulators (6 Month Refill Only) Protocol Failed - 02/12/2024 12:50 AM Failed - Has an encounter in the past 6 months with a depression or anxiety visit diagnosis Passed - Visit with relevant provider in past 6 months or upcoming 90 days Recent Visits Date Type Provider Dept 11/21/23 Office Visit Senait Campa APRN, RN [facility] Showing recent visits within past 182 days and meeting all other requirements Future Appointments No visits were found meeting these conditions. Showing future appointments within next 90 days and meeting all other requirements Passed - No PRN Use for Trazodone Passed - Patient has established therapy with Serotonin Modulators for at least 6 months documented in this encounter Plan of Treatment Upcoming Encounters Date Type Department Care Team (Late st Contact Info) Description 05/27/2025 2:30 PM CDT Office Visit [facility] Medical Group - Family Medicine [facility] [address] [place] [address] Senait Campa APRN, RN [facility] #[address] [address] documented as of this encounter Visit Diagnoses Diagnosis Primary insomnia Persistent disorder of initiating or maintaining sleep documented in this encounter Additional Health Concerns Assessment Noted Time PHQ-9 Depression Total Score: 0 11/21/19 24 2:23 PM CDT documented as of this encounter Care Teams Cryptographic Vulnerability Analyst Relationship Specialty Start Date End Date Senait Campa APRN, [facility] #[address] [address] PCP - General Advanced Practice Nurse 07/26/22 documented as of this encounter
--- OUTSIDE RECORDS SUMMARY | 2025-03-05 14:03 | XMS_ITS | Clinical Summary ---
Author Organization [facility] Address [address] [place] [address] Phone Care Team Providers Care Warranty Manager Name Role Phone Senait Campa APRN, EDWIN Primary Care Provid er Allergies Active Allergy Reactions Criticality Noted Date Comments Amoxicillin Rash Medium 03/25/2022 Losartan Diarrhea Low 04/24/2019 Medications fluticasone (FLONASE) 50 MCG/ACT Suspension USE 2 SPRAYS IN EACH NOSTRIL ONCE DAILY Active Cholecalciferol 2000 UNIT Capsule TAKE 1 CAPSULE BY MOUTH EVERY DAY Active B Complex Vitamins Capsule Take 1 Capsule by mouth. Active augmented betamethasone dipropionate (DIPROLENE-AF) 0.05 % Ointment Apply 2 times daily. Application Site: Right forearm rash 45 g 024 Active Additional Information Patient not taking.Reported on 11/21/2024 traZODone (DESYREL) 100 MG TabletIndication s:Primary insomnia TAKE 1 TABLET BY MOUTH EVERY DAY AT NIGHT 90 Tablet 1 Active Additional Information Patient not taking.Reported on 11/21/2024 buPROPion (WELLBUTRIN) 150 MG XL tabletIndication s:Tobacco abuse TAKE 1 TABLET BY MOUTH EVERY DAY IN THE MORNING 90 Tablet Active Additional Information Patient not taking.Reported on 11/21/2024 ibuprofen (MOTRIN) 600 MG TabletIndication s:Sternal pain Take 1 Tablet by mouth every 6 hours as needed for Severe pain. 30 Tablet 3 025 Active albuterol 108 (90 Base) MCG/ACT Aerosol Solution take 2 Puffs by inhalation every 4 hours as needed for Wheezing. 18 g 025 Active magnesium oxide (MAG-OX) 400 MG TabletIndication s:Hypomagnesemia TAKE 1 TABLET BY MOUTH TWICE A DAY 60 Tablet 5 025 Active cetirizine (ZyrTEC) 10 MG Tablet Take 1 Tablet by mouth daily as needed for Allergies. 30 Tablet 025 Active amLODIPine (NORVASC) 5 MG TabletIndication s:Benign hypertension TAKE 1 TABLET BY MOUTH EVERY DAY 90 Tablet 1 025 Active hydroCHLOROthiaz nakul 25 MG Tablet TAKE 1 TABLET BY MOUTH EVERY DAY 90 Tablet 1 025 Active pantoprazole (PROTONIX) 40 MG Tablet Delayed ResponseIndicati ons:GERD with stricture TAKE 1 TABLET BY MOUTH EVERY DAY 90 Tablet 1 025 Active pantoprazole (PROTONIX) 40 MG Tablet Delayed ResponseIndicati ons:GERD with stricture TAKE 1 TABLET BY MOUTH EVERY DAY 90 Tablet 1 025 2024 Discontinued amLODIPine (NORVASC) 5 MG TabletIndication s:Benign hypertension Take 1 Tablet by mouth daily. 90 Tablet 025 2024 Discontinued hydroCHLOROthiaz nakul 25 MG Tablet Take 1 Tablet by mouth daily. 90 Tablet 025 2024 Discontinued magnesium oxide (MAG-OX) 400 MG TabletIndication s:Hypomagnesemia Take 1 Tablet by mouth 2 times daily. 60 Tablet 025 2024 Discontinued cetirizine (ZyrTEC) 10 MG Tablet Take 1 Tablet by mouth daily as needed for Allergies. 30 Tablet 025 2024 Discontinued(Geovanna bolaños) Active Problems Problem Noted Date Diagnosed Date Hypomagnesemia 01/10/2025 Bochdalek hernia 01/10/2025 COPD exacerbation 10/29/2022 Hematoma 03/23/2021 Benign hypertension 06/28/2017 Family history of malignant neoplasm of colon Overview (03/25/2022): Family history of colon cancer Added automatically from request for surgery [id number] GERD with stricture 01/11/2014 Overview (03/25/2022): GERD with stricture has required dilatation x2 2008, and 2014: 2008 GERD ring dilatation POSTPROCEDURE DIAGNOSES: 1. Dysphagia with evidence of distal esophageal ring, status post dilatation to 60 [place]. 2. Gastroesophageal reflux disease. Dr. Cruz Peñaloza [...] with negative CLOtest. PHYSICIAN Cruz Peñaloza M.D. History of adenomatous polyp of colon 01/11/2014 Overview (03/25/2022): Mother has Rectal cancer. Adenomatous colon polyp colonoscopy (+) 2008 Dr. Davis, colonoscopy test -[address] Peñaloza Added automatically from request for surgery [id number] History of cervical cancer 01/11/2014 Overview (03/25/2022): Cervical cancer multicentric inside of [facility] [address] Mcwilliams treated by Dr. Irizarry with vaginal hysterectomy 2008. Follow-up Pap smears test -[address] Mcwilliams Tobacco dependence syndrome 01/11/2014 Overview (03/25/2022): Tobacco abuse Carcinoma of cervix 06/01/2012 Resolved Problems Problem Noted Date Diagnosed Date Resolved Date Pneumonia due to infectious organism 10/28/2022 11/21/2023 Respiratory failure with hypoxia 10/27/2022 11/21/2023 Encounters Date Type Department Care Team Description 03/05/2025 MyChart RX Renewal [facility] [address] [place] [address] Strohbeck, Senait, INVENTORY TECHNICIAN, SHAKE OUT WORKER Medication Renewal Request 02/21[facility] [place] [address] Strohbeck, Senait, INVENTORY TECHNICIAN, SHAKE OUT WORKER Medication Refill 02/21/2025 [facility] [place] [address] Strohbeck, Senait, INVENTORY TECHNICIAN, SHAKE OUT WORKER Medication Refill 02/18/2025 [facility] [place] [address] Strohbeck Senait, INVENTORY TECHNICIAN, SHAKE OUT WORKER Medication Refill 02/10/2025 [facility]ill [facility] [place] [address] Strohbeck Senait, INVENTORY TECHNICIAN, SHAKE OUT WORKER Medication Refill 02/06/2025 [facility] [place] [address] Strohbeck, Senait, INVENTORY TECHNICIAN, SHAKE OUT WORKER Medication Refill 01/14/2025 MyChart RX Renewal [facility] [address] [place] [address] Strohbeck Senait, INVENTORY TECHNICIAN, SHAKE OUT WORKER Medication Renewal Reviewed 01/14/2025 Results Follow-Up [facility] [address] [place] [address] Strohbeck, Senait, INVENTORY TECHNICIAN, SHAKE OUT WORKER MAGNESIUM (MG) 01/10/2025 11:30 AM CDT Clinical Support [facility] On[facility] [address] [place] [address] Senait Campa APRN, CNP Hypomagnesemia Discharge Disposition: Discharged to home or Selfcare 01/10/2025 Travel 01/09/2025 9:50 AM CDT Lab [facility] PHYSICIAN [facility] [address] [address] [facility] Benign hypertension Discharge Disposition: Discharged to home or Selfcare 01/09/2025 9:20 AM CDT Clinical Support [facility] [address] [place] [address] [facility], Primary Nurse Clinic Benign hypertension (Primary Dx) Discharge Disposition: Discharged to home or Selfcare 01/09/2025 Results Follow-Up [facility] [address] [place] [address] Senait Campa APRN, CNP CMP (COMPREHENSIVE METABOLIC PANEL), LIPID PANEL, THYROID STIMULATING HORMONE (TSH), Additional followed-up results: 2 01/09/2025 Telephone [facility] [address] [place] [address] Senait Campa APRN, CNP Erroneous Encounter - Disregard 01/09/2025 Telephone [facility] [address] [place] [address] Senait Campa APRN, CNP Follow-up 01/09/2025 Telephone [facility] [address] [place] [address] Senait Campa APRN, CNP 01/07/2025 Travel 01/02/2025 3:30 PM CDT [facility]illary [facility] [address] [place] [address] Senait Campa, INVENTORY TECHNICIAN, SHAKE OUT WORKER Encounter for screening for lung cancer Discharge Disposition: Discharged to home or Selfcare 12/31/2024 Travel 12/04/2024 Travel from Last 3 Months Immunizations Immunization Administration Dates Next Due Covid-19, Mrna, Lnp-s, Pf, 30 Mcg/0.3 Ml Dose (P fizer) 09/28/2021 Influenza,Split Virus,Trivalent,Injectable,PF MMR Vaccine 05/08/2019 TDAP Vaccine 03/12/2021,03/28/2010 Family History Medical History Relation Name Comments No Known Problems Brother Manfred Barnes (HERSON) Alcohol Abuse Father Manfred Drug Abuse Father Manfred Heart Attack Father Manfred No Known Problems Maternal Grandfather Cancer Maternal Grandmother Delphia Brain Diabetes Maternal Grandmother Delphia Hypertension Maternal Grandmother Delphia Stroke Maternal Grandmother Delphia Cancer Mother Petrona Colorectal Diabetes Mother Petrona Hypertension Mother Petrona Kidney Disease Mother Petrona Heart Attack Paternal Grandfather Marcus Breast Cancer Paternal Grandmother Breast Cancer Sister 1 Madalyn Hypertension Sister 1 Madalyn Kidney Stones Sister 1 Madalyn Depression Sister 2 Froilan Relation Name Status Comments Brother Manfred Barnes (HERSON) Alive Father Mnafred Maternal Grandfather Maternal Grandmother Nida Mother Petrona Paternal Grandfather Marcus Paternal Grandmother Sister 1 Madalyn Alive Sister 2 Froilan Alive Social History Tobacco Use Types Packs/Day Years Used Date Smoking Tobacco: Every Day Cigarettes 1 30 Smokeless Tobacco: Never Tobacco Cessation:Ready to Q uit: Yes; Counseling Given: Not Answered Alcohol Use Standard Drinks/Week Comments Yes 9 (1 standard drink = 0.6 oz pure alcohol) 2-3 cocktails at night occasionally DLS Utilities Answer Date Recorded In the past 12 months has [employer], gas, oil, or water [employer] [address] threatened to shut off services in your [...] often do you attend chur ch or buddhism services? More than 4 times per year 11/21/2024 Do you belong to any clubs o r organizations such as confucianism groups, unions, fraternal or athletic groups, or [...] Total Score - Questions 1-9 0 10/27 [facility] - Occupational [...] place to sleep or slept in a [place] facility (including now)? No 11/20/2023 Housing Stability Vital [...] time in the past 12 m [facility], were you homeless or living in a [place] facility (including now)? 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 Sexual Orientation Not on file Last Filed Vital Signs Vital Sign Reading Time Taken Comments Blood Pressure 156/90 01/10/2025 11:30 AM CDT Pulse 97 01/10/2025 11:30 AM CDT Temperature 36.6 C (97.8 F) 01/10/2025 11:30 AM CDT Respiratory Rate 16 01/10/2025 11:30 AM CDT Oxygen Saturation 98% 01/10/2025 11:30 AM CDT Inhaled Oxygen Concentration - - Weight 60.8 kg (134 lb) 11/21/2024 1:52 PM CDT Height 167.6 cm (5' 6) 11/21/2024 1:52 PM CDT Body Mass Index 21.63 11/21/2024 1:52 PM CDT Plan of Treatment Upcoming Encounters Date Type Department Care Team (Late st Contact Info) Description 05/27/2025 2:30 PM CDT Office Visit [facility] [address] [place] [id number] Senait Campa, INVENTORY TECHNICIAN, SHAKE OUT WORKER [address] [phone] Health Maintenance Due Date Last Done Comments Pneumococcal Immunization (50+ years) (1 of 2 - PCV) 01/27/1984 Zoster Immunization (1 of 2) 01/27/1984 Cologuard 2010 Immunochemical Fecal Occult Blood 2010 Respiratory Syncytial Virus (RSV) Immunization (Adult) (1 - Risk 60-74 years 1-dose series) 2025 Colonoscopy 04/14/2025 04/14/2020 Colorectal Cancer Screening 04/14/2025 Influenza Immunization (#1) 2025 11/21/2024 Mammogram 06/20/2025 06/20/2024, 05/29, 10/05/2022, Additional history exists Lung Cancer Screening 01/02/2026 01/02/2025, 023 Td Immunization Every 10 Years (Adults With 1 Tdap) 03/12/2031 03/12/2021, 03/28/2010 Hepatitis C Virus (HCV) Screening Completed 03/12/2020 DTaP/Tdap/Td Immunization Discontinued 03/12/2021, 08/2009 SARS-COV-2 Immunization Discontinued 09/28/2021, 09/07 Hepatitis B Immunization Discontinued Human Papillomavirus (HPV) Immunization Aged Out No longer eligible based on patient's age to complete this topic Meningococcal Immunization (ACWY) Aged Out No longer eligible based on patient's age to complete this topic Rotavirus Immunization Aged Out No lo nger eligible based on patient's age to complete this topic Procedures Procedure Name Priority Date/Time Associated Diagnosis Comments MAGNESIUM (MG) Routine 01/11/2025 10:32 AM CDT Hypomagnesemia MAGNESIUM (MG) Routine 01/09/2025 9:16 AM CDT Benign hypertension THYROID STIMULATING HORMONE (TSH) Routine 01/09/2025 9:16 AM CDT Benign hypertension LIPID PANEL Routine 01/09/2025 9:16 AM CDT Benign hypertension CMP (COMPREHENSIVE METABOLIC PANEL) Routine 01/09/2025 9:16 AM CDT Benign hypertension CT CHEST SCREENING WO Routine 01/02/2025 3:58 PM CDT Encounter for screening for lung cancer MAMMOGRAM BILATERAL GENERIC 06/20/2024 12:00 AM CDT from Last 3 Months or Most Recently Relevant to Health Maintenance Results * (ABNORMAL) MAGNESIUM (MG) (01/11/2025 10:32 AM CDT) Only the most recent of2 resultswithin the time period is included. MAGNESIUM 1.2(L) 1.6 - 2.6 mg/dL 01/11/2025 12:21 PM CDT [facility] Blood Venipuncture / Unknown 01/11/2025 10:32 AM CDT 01/11/2025 11:57 AM CDT Senait Campa INVENTORY TECHNICIAN, SHAKE OUT WORKER CHEMISTRY ORDERABLES Final Result [facility] [address] [place] [address] * THYROID STIMULATING HORMONE (TSH) (01/09/2025 9:16 AM CDT) TSH 1.656 0.300 - 5.000 mIU/L 01/09/2025 1:31 PM CDT [facility] Blood Venipuncture / Unknown 01/09/2025 9:16 AM CDT 01/09/2025 9:16 AM CDT us Senait Campa INVENTORY TECHNICIAN, SHAKE OUT WORKER CHEMISTRY ORDERABLES Final Result [facility] [address] [place] [address] * (ABNORMAL) LIPID PANEL (01/09/2025 9:16 AM CDT) CHOLESTEROL 271(H) <200 mg/dL 01/09/2025 1:16 PM CDT [facility] TRIGLYCERIDES 56 <150 mg/dL 01/09/2025 1:16 PM CDT [facility] HDL CHOLESTEROL 139 >40 mg/dL 1:16 PM CDT [facility] LDL 121 <130 mg/dL 01/09/2025 1:16 PM CDT [facility] VLDL 11 10 - 50 mg/dL 01/09/2025 1:16 PM CDT [facility] CHOL/HDL RATIO 1.9 0.0 - 4.4 01/09/2025 1:16 PM CDT [facility] NON-HDL CHOLESTEROL 132(H) <130 mg/dL 01/09/2025 1:16 PM CDT [facility] IS THE PATIENT REQUIRED TO BE FASTING? Yes 01/09/2025 1:16 PM CDT [facility] HAS THE PATIENT BEEN FASTING? Yes 01/09/2025 1:16 PM CDT [facility] Blood Venipuncture / Unknown 01/09/2025 9:16 AM CDT 01/09/2025 9:16 AM CDT Senait Campa INVENTORY TECHNICIAN, SHAKE OUT WORKER CHEMISTRY ORDERABLES Final Result [facility] [address] [place] [address] * (ABNORMAL) CMP (COMPREHENSIVE METABOLIC PANEL) (01/09/2025 9:16 AM CDT) SODIUM 133(L) 136 - 145 mmol/L 01/09/2025 1:16 PM CDT [facility] POTASSIUM 3.6 3.5 - 5.1 mmol/L 01/09/2025 1:16 PM CDT [facility] CHLORIDE 92(L) 98 - 107 mmol/L 01/09/2025 1:16 PM CDT [facility] CO2, VENOUS 28 22 - 30 mmol/L 01/09/2025 1:16 PM CDT [facility] ANION GAP 16.6 <18.0 mmol/L 01/09/2025 1:16 PM CDT [facility] GLUCOSE 104(H) 70 - 99 mg/dL 01/09/2025 1:16 PM CDT [facility] BUN 9(L) 10 - 20 mg/dL 01/09/2025 1:16 PM CDT [facility] CREATININE, BLOOD 0.72 0.60 - 1.00 mg/dL 01/09/2025 1:16 PM CDT [facility] BUN/CREATININE RATIO 13 12 - 20 ratio 01/09/2025 1:16 PM CDT [facility] TOTAL PROTEIN 7.6 6.0 - 8.0 g/dL 01/09/2025 1:16 PM T [facility] ALBUMIN 4.6 3.5 - 5.0 g/dL 01/09/2025 1:16 PM CDT [facility] A/G RATIO 1.5 1.0 - 2.2 01/09/2025 1:16 PM CDT [facility] CALCIUM 9.4 8.7 - 10.5 mg/dL 01/09/2025 1:16 PM CDT [facility] T BILI 1.1 0.2 - 1.2 mg/dL 01/09/2025 1:16 PM CDT [facility] SGOT (AST) 37 <43 U/L 01/09/2025 1:16 PM CDT [facility] SGPT (ALT) 24 <56 U/L 01/09/2025 1:16 PM CDT [facility] ALKALINE PHOSPHATASE 50 40 - 150 U/L 01/09/2025 1:16 PM CDT [facility] IS THE PATIENT REQUIRED TO BE FASTING? No 01/09/2025 1:16 PM CDT [facility] GFR, ESTIMATED >60 >=60 01/09/2025 1:16 PM CDT [facility] Comment: Creatinine Clearance is the preferred criteria for selecting drug dose adjustments in renally impaired patients. The GFR is provided as additional pertinent clinical information. GFR is reported in mL/min/1.73 sq m. Calculation based on the Chronic Kidney Disease Epidemiology Collaboration (CKD- EPI) equation refit without adjustment for race. GFR, EST. >60 >=60 025 1:16 PM CDT [facility] GFR, EST. NONAFRICAN >60 >=60 01/09/2025 1:16 PM CDT [facility] Blood Venipuncture / Unknown 01/09/2025 9:16 AM CDT 01/09/2025 9:16 AM CDT us Senait Campa APRNEDWIN CHEMISTRY ORDERABLES Final Result [facility] [address] [place] [address] * CT CHEST SCREENING WO (01/02/2025 3:58 PM CDT) Anatomical Region Laterality Modality Chest N/A Computed Tomogra phy 01/08/2025 6:53 PM CDT Impressions 01/08/2025 6:55 PM CDT IMPRESSION: Redemonstration of scattered small pulmonary nodules measuring up to 0.4 cm, grossly similar to the prior study. No definite evidence of a new suspicious pulmonary nodule. Mild emphysematous changes of lungs with scattered mild subsegmental atelectasis and scarring. Scattered mild bronchial wall thickening, which is likely related to mild chronic bronchitis/bronchiolitis. Lung-RADS category 2: Benign appearance or behavior. Recommendation: Low dose Screening CT of chest in 12 months. Narrative 01/08/2025 6:55 PM CDT EXAM DESCRIPTION: CT CHEST SCREENING WO REASON FOR STUDY: Screening CT of the chest in a current smoker with a 30 pack year smoking history. Additional history: History of cervical cancer 10 years ago.. TECHNIQUE: Low dose CT scan of the chest was performed without intravenous contrast using helical scanning technique. The exam extends from the lung apices through the lung bases. Automatic exposure control was used as a dose optimization technique. NOTE: This study was performed for the specific purposes of lung cancer screening and is not an alternative to diagnostic chest CT. RADIATION DOSE: CT dose index volume (CTDIvol) = 1.52 mGy COMPARISON: 10/28/2022 FINDINGS: SMOKING RELATED LUNG DISEASE: There are mild emphysematous changes of lungs with scattered mild subsegmental atelectasis and scarring. There is biapical pleural thickening and scarring. There is no definite evidence of a pneumothorax. There is scattered mild bronchial wall thickening, which is likely related to mild chronic bronchitis/bronchiolitis. There is no definite evidence of a focal consolidation or pleural effusion. There are few scattered calcified granulomas noted. LUNG NODULES: There are scattered small pulmonary nodules noted, similar to the prior study. For example, there is a stable subtle 0.3 cm pulmonary nodule in the anterior right upper lobe abutting the right minor fissure (axial image 122). There is a stable 0.3 cm pulmonary nodule in the anterior right middle lobe (axial image 129). There is a stable subtle 0.3 cm pulmonary nodule in the anteromedial left upper lobe (axial image 76). There is a stable 0.4 cm pulmonary nodule in the posterolateral left lower lobe (axial image 135). There is a stable subtle 0.4 cm pulmonary nodule in the posterior left lower lobe (axial image 193). CORONARY ARTERY CALCIFICATION: Present. OTHER: The heart size is stable. There is no definite evidence of pericardial effusion. There are atherosclerotic changes of the coronary vessels. There are mild atherosclerotic changes of the thoracic aorta with ectasia of the ascending thoracic aorta measuring up to 3.9 cm at the level of the main pulmonary artery. There is dilatation of main pulmonary artery measuring up to 3.8 cm, which is concerning for pulmonary arterial hypertension. There is no definite unenhanced CT evidence of mediastinal, hilar, or axillary lymphadenopathy. There are scattered subcentimeter mediastinal lymph nodes noted with largest measuring 0.7 cm in the subcarinal region (axial image 109). There are bilateral Bochdalek's hernias. The bilateral adrenal glands are grossly stable and unremarkable. There is mild osteopenia. There is a minimal S shaped scoliotic curvature of the spine with degenerative changes. THIS IS AN ELECTRONICALLY VERIFIED FINAL REPORT 01/08/2025 6:53 PM - Electronically signed by Paolo Solis D.O. PS: PS Report ID: [id number] Reading Location: [id number] Procedure Note Paolo Solis DO - 01/08/2025 EXAM DESCRIPTION: CT CHEST SCREENING WO REASON FOR STUDY: Screening CT of the chest in a current smoker with a 30 pack year smoking history. Additional history: History of cervical cancer 10 years ago.. TECHNIQUE: Low dose CT scan of the chest was performed without intravenous contrast using helical scanning technique. The exam extends from the lung apices through the lung bases. Automatic exposure control was used as a dose optimization technique. NOTE: This study was performed for the specific purposes of lung cancer screening and is not an alternative to diagnostic chest CT. RADIATION DOSE: CT dose index volume (CTDIvol) = 1.52 mGy COMPARISON: 10/28/2022 FINDINGS: SMOKING RELATED LUNG DISEASE: There are mild emphysematous changes of lungs with scattered mild subsegmental atelectasis and scarring. There is biapical pleural thickening and scarring. There is no definite evidence of a pneumothorax. There is scattered mild bronchial wall thickening, which is likely related to mild chronic bronchitis/bronchiolitis. There is no definite evidence of a focal consolidation or pleural effusion. There are few scattered calcified granulomas noted. LUNG NODULES: There are scattered small pulmonary nodules noted, similar to the prior study. For example, there is a stable subtle 0.3 cm pulmonary nodule in the anterior right upper lobe abutting the right minor fissure (axial image 122). There is a stable 0.3 cm pulmonary nodule in the anterior right middle lobe (axial image 129). There is a stable subtle 0.3 cm pulmonary nodule in the anteromedial left upper lobe (axial image 76). There is a stable 0.4 cm pulmonary nodule in the posterolateral left lower lobe (axial image 135). There is a stable subtle 0.4 cm pulmonary nodule in the posterior left lower lobe (axial image 193). CORONARY ARTERY CALCIFICATION: Present. OTHER: The heart size is stable. There is no definite evidence of pericardial effusion. There are atherosclerotic changes of the coronary vessels. There are mild atherosclerotic changes of the thoracic aorta with ectasia of the ascending thoracic aorta measuring up to 3.9 cm at the level of the main pulmonary artery. There is dilatation of main pulmonary artery measuring up to 3.8 cm, which is concerning for pulmonary arterial hypertension. There is no definite unenhanced CT evidence of mediastinal, hilar, or axillary lymphadenopathy. There are scattered subcentimeter mediastinal lymph nodes noted with largest measuring 0.7 cm in the subcarinal region (axial image 109). There are bilateral Bochdalek's hernias. The bilateral adrenal glands are grossly stable and unremarkable. There is mild osteopenia. There is a minimal S shaped scoliotic curvature of the spine with degenerative changes. THIS IS AN ELECTRONICALLY VERIFIED FINAL REPORT 01/08/2025 6:53 PM - Electronically signed by Paolo Solis D.O. PS: PS Report ID: [id number] Reading Location: [place] [address] IMPRESSION: Redemonstration of scattered small pulmonary nodules measuring up to 0.4 cm, grossly similar to the prior study. No definite evidence of a new suspicious pulmonary nodule. Mild emphysematous changes of lungs with scattered mild subsegmental atelectasis and scarring. Scattered mild bronchial wall thickening, which is likely related to mild chronic bronchitis/bronchiolitis. Lung-RADS category 2: Benign appearance or behavior. Recommendation: Low dose Screening CT of chest in 12 months. Senait Campa INVENTORY TECHNICIAN, EDWIN IMG CT ORDERABLES Fi nal Result * MAMMOGRAM BILATERAL MISCELLANEOUS (06/20/2024 12:00 AM CDT) 06/20/2024 us Provider Scan IMG MAMMO ORDERABLES Final Resul t SCAN from Last 3 Months or Most Recently Relevant to Health Maintenance Insurance [facility] Advance Directives * Full Code (Latest Code Status on File) Date Activated Date Inactivated Comments 10/27/2022 11:33 PM 10/29/2022 3:01 PM CPR-Full [place]ek[place] tment: FULL ARREST: Attempt Resuscitation/CPR wit intubation and mechanical ventilation. PRE-ARREST: Use entire range of life support measures to stabilize the patient. Care Teams Warranty Manager Relationship Specialty Start Date End Date Senait Campa APRN, EDWIN [address] [address] PCP - General Advanced Practice Nurse 07/26/22
--- OUTSIDE RECORDS SUMMARY | 2025-03-05 14:03 | XMS_ITS | Encounter Summary ---
Author Organization [facility] Healthcare Address [address] [place] [address] Care Team Providers Care Glue Mixer Name Role Phone Renay Elmore MD Primary Care Provider +- [phone] Nazia Terry MD Unavailable [phone] Sagrario Long MD Unavailable [phone] Senait Campa NP Primary Care Provider + Encounter Details Date Type Department Care Team (Late st Contact Info) Description 02/01/2021 Telephone [facility] [address] [place] [id number] Kristina Guillen, RT Social History Tobacco Use Types Packs/Day Years [...] on file Legal Sex Female 1:44 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 DIRECTOR 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 Gender Identity Not on file Sexual Orientation Not on file 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 Not on file Not on file Not on file documented as of this encounter Plan of Treatment Not on file documented as of this encounter Visit Diagnoses Not on filedocumented in this encounter Care Teams Glue Mixer Relationship Specialty Start Date End Date Renay Elmore MD PCP - General 11/25/16 10/04/22 Senait Campa NP [address] [address] [place] [address] PCP - General Nurse Practitioner 10/05/22 Nazia Terry MD [address] [place] [address] Coding Team Lead Obstetrics and Gynecology 12/23/20 Sagrario Long MD [address] [place] [address] Consulting Physician Gastroenterology 12/23/20 documented as of this encounter
--- OUTSIDE RECORDS SUMMARY | 2025-03-05 14:03 | XMS_ITS | Encounter Summary ---
Author Organization [facility] Address [address] [place] [address] Phone Care Team Providers Care Professor Of Geography Name Role Phone Senait Campa APRN, CNP Primary Care Provid er Reason for Visit * Reason Comments Medication Refill Encounter Details Date Type Department Care Team (Late st Contact Info) Description 08/31/2024 Refill [facility] [address] [place] [address] Cezar Barclay MD #[address] [address] Medication Refill Social History Tobacco Use Types Packs/Day Years Used Date Smoking Tobacco: Every Day Cigarettes 1 30 Smokeless Tobacco: Never Alcohol Use Standard Drinks/Week Comments Yes 7 (1 standard drink = 0.6 oz pur e alcohol) 2-3 cocktails per night [facility] Utilities Answer Date Recorded In the past 12 months has [employer] electric, gas, oil, or water company threatened [...] week 11/20/2023 How often do you attend [facility] or congregational services? More than 4 times per year 11/20/2023 Do you belong to any clubs o r organizations such as restoration groups, unions, fraternal or athletic groups, or [...] Total Score - Questions 1-9 0 10/27 [facility] [place] - Occupational Stress Questionnaire Answer Date Recorded [...] CDT Gender Identity Female 07/16/2023 1:26 PM RN HOSPICE Sexual Orientation Not on file documented as of this encounter Miscellaneous Notes * Telephone Encounter - Dior Amaya RN - 09/02/2024 10:59 AM RN HOSPICE Disp Refills Start End albuterol 108 (90 Base) MCG/ACT Aerosol Solution 18 g 0 08/30/2024 -- Sig - Route: take 2 Puffs by inhalation every 4 hours as needed for Wheezing. - Inhalation Sent to pharmacy as: Albuterol Sulfate HFA 108 (90 Base) MCG/ACT Inhalation Aerosol Solution (PROVENTIL HFA, VENTOLIN HFA) Class: E Prescribe Notes to Pharmacy: Give albuterol as covered by insurance E-Prescribing Status: Receipt confirmed by pharmacy (08/30/2024 7:11 PM RN HOSPICE) HOSPICE documented in this encounter Plan of Treatment Upcoming Encounters Date Type Department Care Team (Late st Contact Info) Description 05/27/2025 2:30 PM CDT Office Visit [facility] [address] [place] [address] Senait Campa APRN, BLOOD DONOR UNIT ASSISTANT #[address] [address] documented as of this encounter Visit Diagnoses Not on filedocumented in this encounter Additional Health Concerns Assessment Noted Time PHQ-9 Depression Total Score: 0 11/21/19 24 2:23 PM CDT documented as of this encounter Care Teams Professor Of Geography Relationship Specialty Start Date End Date Senait Campa APRN, EDWIN [address] [address] PCP - General Advanced Practice Nurse 07/26/22 documented as of this encounter
--- NOTE | 2025-03-05 14:14 | ED_ITS ---
HPI - URI/Sore Throat General Chief Complaint: Upper Respiratory Infection Stated Complaint: Sinus Problems,Chest Congestion Time Seen by Provider: 03/05/25 14:14 Source: patient and RN notes reviewed Mode of arrival: ambulatory Limitations: no limitations History of Present Illness HPI Narrative: 60-year-old female presents with concern for one-week history of cough, chest congestion, sinus congestion and drainage. Reports she is taking emergency without relief. She reports general malaise and fatigue. MD elicited complaint: cough and nasal congestion Related Data Home Medications ?Medication ?Instructions ?Recorded ?Confirmed ?Last Taken ?Type diltiazem HCl 240 mg 240 mg PO DAILY 03/04/21 03/04/21 Unknown History capsule,extended release 24 hr, controlled pantoprazole 40 mg tablet,delayed 40 mg PO QAM 03/04/21 03/04/21 Unknown History release albuterol sulfate 90 mcg/actuation inhalation 03/05/25 Unknown History aerosol inhaler amlodipine 5 mg tablet mg 03/05/25 Unknown History cetirizine 10 mg tablet mg 03/05/25 Unknown History hydrochlorothiazide 25 mg tablet mg 03/05/25 Unknown History magnesium oxide 400 mg (241.3 mg mg 03/05/25 Unknown History magnesium) tablet Allergies Allergy/AdvReac Type Severity Reaction Status Date / Time losartan Allergy Intermediate weight loss Verified 03/05/25 13:59 amoxicillin (From Amoxil) Allergy Hives Verified 03/05/25 13:59 Review of Systems Review of Systems: CONSTITUTIONAL: Reports malaise, fatigue, sweats. Denies fever. EYES: Denies visual changes, redness, or discharge. ENT: Reports rhinorrhea, congestion, sinus pain. Denies otalgia and sore throat. CARDIOVASCULAR: Denies chest pain, palpitations, or edema. RESPIRATORY: Reports cough. Denies dyspnea. GASTROINTESTINAL: Denies abdominal pain, nausea, vomiting, diarrhea SKIN: Denies rash or itching. MUSCULOSKELETAL: Reports myalgia. NEUROLOGIC: Denies headache. All systems reviewed & are unremarkable except as noted in HPI and below PMFSH Comments At time of signature, agree with nursing past medical, surgical, social and family history. There is no relevant family history pertinent to the presenting complaint Exam Narrative: GENERAL: Well-appearing, well-nourished, and in no acute distress. HEAD: Normocephalic EYES: PERRLA, conjunctivae clear ENT: Nares clear, turbinates edematous and erythematous. Mucous membranes moist. TM pearly king with sharp light reflex bilaterally; no tragal tenderness. Oropharynx not erythematous without lesions. Tonsils not enlarged and without exudate, no drooling, no hoarseness, no trismus, uvula midline. NECK: Supple. No lymphadenopathy CHEST: Clear to auscultation, breath sounds equal. No wheezing, rhonchi, rales, or stridor. No respiratory distress, speaks in full sentences. HEART: Regular rate and rhythm. No murmur heard. SKIN: Warm, dry, no rash. NEURO: Alert and oriented x3. PSYCH: Normal mood and affect Course Course Emergency Course: Patient is aware of diagnosis, understands and agrees to treatment plan. Anticipatory guidance given. Patient agrees to follow-up as directed and is a church of reasons to seek care at the emergency department. Portions of this record may have been created with voice recognition software Level of Care: Express Care Visit Vital Signs Vital signs: Vital Signs Temperature 97.5 F L 03/05/25 13:53 Pulse Rate 94 03/05/25 13:53 Respiratory Rate 16 03/05/25 13:53 Blood Pressure 147/106 H 03/05/25 13:53 Pulse Oximetry 99 03/05/25 13:53 Oxygen Delivery Room Air 03/05/25 13:53 Temperature 97.5 F L 03/05/25 13:53 Pulse Rate 94 03/05/25 13:53 Respiratory Rate 16 03/05/25 13:53 Blood Pressure 179/104 H 03/05/25 13:58 Pulse Oximetry 99 03/05/25 13:53 Oxygen Delivery Room Air 03/05/25 13:53 Reviewed. MDM - URI/Sore Throat MDM Narrative Medical decision making narrative: Differential diagnosis considered: Shay virus, strep pharyngitis, allergic rhinitis, upper respiratory tract infection, sinusitis, rhinosinusitis, nasopharyngitis. viral pharyngitis, otitis media, otitis externa, pneumonia, bronchitis, viral cough syndrome, viral syndrome, and influenza. Exam findings show no acute concerns or changes; patient is non-toxic appearing and is in no distress. Patient is appropriate for outpatient treatment and follow-up. Lab Data Attestation: I reviewed the patient's lab results. Critical Care Time Critical Care Time Critical Care Time: No Discharge Plan Discharge Clinical Impression: Sinobronchitis Patient Disposition: Home Condition: Stable Instructions: Antibiotic Form, Sinusitis (ED), Acute Bronchitis (ED) Additional Instructions: Take medication as prescribed Recommend antihistamine such as Benadryl at night time and Zyrtec or Eula during the day Also, recommend symptomatic treatment includes: rest, fluids, and increase humidity of the air at home. Recommend Acetaminophen as directed on the bottle to reduce fever, pain, headache. Avoid smoking/second-hand smoke. Please schedule a follow-up visit with your personal physician for further evaluation and treatment within 3-5days. Including recheck and discussion of your blood pressure. If your symptoms persist, change or worsen significantly before you can contact your personal physician then please, without delay, go to the emergency department for further evaluation. Patient Language: Luxembourgish Prescriptions: New benzonatate 200 mg capsule 200 mg PO TID PRN (Reason: cough) Qty: 14 0RF doxycycline monohydrate 100 mg tablet 100 mg PO BID 7 Days Qty: 14 0RF No Action diltiazem HCl 240 mg Capsule,Ext.Rel 24h Degradable 240 mg PO DAILY pantoprazole 40 mg Tablet,Delayed Release (Dr/Ec) 40 mg PO QAM cetirizine 10 mg tablet amlodipine 5 mg tablet magnesium oxide 400 mg (241.3 mg magnesium) tablet hydrochlorothiazide 25 mg tablet albuterol sulfate 90 mcg/actuation HFA aerosol inhaler INHALATION Follow-up/Referrals: Lokesh,Senait Agosto, COMMERCIAL ESTIMATOR [Primary Care Provider] -
== END 2025-03-05 14:26 | disposition home or self-care (01) ==
PROVIDERS: Emergency Provider Nurse Practitioner; PCP Nurse Practitioner
DX: J32.9 Chronic sinusitis, unspecified (principal); J40 Bronchitis, not specified as acute or chronic; I10 Essential (primary) hypertension; K21.9 Gastro-esophageal reflux disease without esophagitis; Z90.711 Acquired absence of uterus with remaining cervical stump; Z85.41 Personal history of malignant neoplasm of cervix uteri
CPT/HCPCS: 99213; G0463

== ENCOUNTER 2025-07-30 16:55 | Emergency (ER) | payer BC, SELFPAY ==
[2025-07-30 16:59] VITALS: BP 156/91; PULSE 103; RESP 16; TEMP 36.1; O2SAT 95
--- OUTSIDE RECORDS SUMMARY | 2025-07-30 17:16 | XMS_ITS | Encounter Summary ---
Author Organization [facility] Address [address] [place] [address] Phone Care Team Providers Care Principal Statistical Scientist Name Role Phone Senait Campa APRN, CANCER GENETIC COUNSELOR Primary Care Prov ider Reason for Visit * Reason Comments Medication Refill Encounter Details Date Type Department Care Team (Late st Contact Info) Description 09/25/2022 Refill [facility] [address] [place] [address] Cezar Barclay MD #[address] [address] Medication Refill Social History Tobacco Use Types [...] CDT Gender Identity Female 07/16/2023 1:26 PM STATISTICAL PROGRAMMER ANALYST Sexual Orientation Not on file COVID-19 Exposure Response Date Recorded In the last 10 days, have yo u been in contact with someone who was confirmed or suspected to have Coronavirus/COVID-19? No / Unsure 09/28/2022 10:09 AM STATISTICAL PROGRAMMER ANALYST documented as of this encounter Functional Status * Question Answer Date of Assessment Author Initial Score 0 09/26/2022 12:00 PM STATISTICAL PROGRAMMER ANALYST Jose L Colmenares RMA Little interest or pleasure in doing things Not at all 09/26/2022 12:00 PM Jose L Gonzalez RMA Feeling down, depressed, or hopeless Not at all 09/26/2022 12:00 PM Jose L Gonzalez RMA * Over the past 2 weeks, how often have you been bothered by any of the following problems? Question Answer Date of Assessment Author Patient Health Questionnaire -2 Score 0 09/26/2022 12:00 PM Jose L Gonzalez RMA documented as of this encounter Mental Status * Question Answer Entry Date Author BP 160/78 09/26/2022 12:40 PM Jose L Benson RMA Temp 99.1 09/26/2022 12:40 PM STATISTICAL PROGRAMMER ANALYST Jose L Landa RMA Pulse 112 09/26/2022 12:40 PM Jose L Benson RMA SpO2 98 09/26/2022 12:40 PM STATISTICAL PROGRAMMER ANALYST Jose L Landa RMA * Question Answer Entry Date Author Initial Score 0 09/26/2022 12:00 PM Jose L Bella RMA Little interest or pleasure in doing things Not at all 09/26/2022 12:00 PM Jose L Gonzalez RMA Feeling down, depressed, or hopeless Not at all 09/26/2022 12:00 PM Jose L Gonzalez RMA documented in this encounter Miscellaneous Notes * Telephone Encounter - Sharon Friend RMA - 09/29/2022 10:48 AM STATISTICAL PROGRAMMER ANALYST Pt notified, vu ISTICAL PROGRAMMER ANALYST * Telephone Encounter - Sharon Friend RMA - 09/27/2022 1:40 PM STATISTICAL PROGRAMMER ANALYST LVM ISTICAL PROGRAMMER ANALYST * Telephone Encounter - Marcella Burch RN - 09/26/2022 10:16 AM CST Patient did not due repeat CMP - order outstanding in chart. ISTICAL PROGRAMMER ANALYST * Telephone Encounter - Marcella Burch RN [...] Dept 07/26/22 Office Visit Cezar Barclay MD [facility] 04/15/22 Office Visit Senait Campa APRN, CNP [facility] 03/25/22 Office Visit Senait Campa APRN, [facility] Showing recent visits within past 365 days and meeting all other requirements Future Appointments No visits were found meeting these conditions. Showing future appointments within next 90 days and meeting all other requirements Passed - GFR on record in past 12 months No results found for: GFRNA ISTICAL PROGRAMMER ANALYST documented in this encounter Plan of Treatment Upcoming Encounters Date Type Department Care Team (Late st Contact Info) Description 11/28/2025 12:45 PM CDT Office Visit [facility] - Family [facility] [address] [place] [address] Senait Campa APRN, CANCER GENETIC COUNSELOR #[address] [address] documented as of this encounter Visit Diagnoses Not on filedocumented in this encounter Additional Health Concerns Infection Onset Date Last Indicated Resolved Time Respiratory Rule Out - RPA 09/26/2022 09/26/2022 0 09/26/2022 1:08 PM STATISTICAL PROGRAMMER ANALYST COVID - 19 10/27/2022 10/27/2022 10/28/2022 9:04 AM STATISTICAL PROGRAMMER ANALYST Respiratory Rule Out - RPA 10/27/2022 10/28/2022 0 10/28/2022 3:53 PM STATISTICAL PROGRAMMER ANALYST Assessment Noted Time PHQ-9 Depression Total Score: 2 03/25/20 22 4:00 PM CDT documented as of this encounter Care Teams Principal Statistical Scientist Relationship Specialty Start Date End Date Senait Campa APRN, CANCER GENETIC COUNSELOR #[address] [phone] PCP - General Advanced Practice Nurse 07/26/22 documented as of this encounter
--- OUTSIDE RECORDS SUMMARY | 2025-07-30 17:16 | XMS_ITS | Encounter Summary ---
Author Organization [facility] Healthcare Address [address] [place] [address] Care Team Providers Care Birthing Nurse Name Role Phone Renay Elmore MD Primary Care Provider [phone]- [phone] Nazia Terry MD Unavailable [phone] Sagrario Long MD Unavailable [phone] Senait Campa NP Primary Care Provider + Reason for Visit * Reason Onset Date Comments Scheduling Appointments 01/19/2021 no malia r to confirm appointment Encounter Details Date Type Department Care Team (Late st Contact Info) Description 01/19/2021 Telephone [facility] [address] [place] [id number] Betsey Burgess, Scheduling Appointments (no answer to confirm appointment ) Social History Tobacco Use Types Packs/Day Years Used Date Smoking Tobacco: Every Day Cigarettes 0.5 38.9 Started: 1986 Smokeless Tobacco: Never Alcohol Use Standard Drinks/Week Comments Yes 0 (1 standard drink = 0.6 oz pur e alcohol) PHQ-2 Answer Date Recorded PHQ-2 Total Score (If total score is 3 or more points, staff should administer the PHQ-9) 0 12/23/2020 Comments No Sex and Gender Information Value Date Recorded Sex Assigned at Not on file Legal Sex Female 1:44 AM BOX FEEDER Gender Identity Not on file Sexual Orientation Not on file 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 Not on file Not on file Not on file documented as of this encounter Plan of Treatment Not on file documented as of this encounter Visit Diagnoses Not on filedocumented in this encounter Care Teams Birthing Nurse Relationship Specialty Start Date End Date Renay Elmore MD PCP - General 11/25/16 10/04/22 Senait Campa NP [address] [address] [place] [address] PCP - General Nurse Practitioner 10/05/22 Nazia Terry MD [address] [address] Feed Blender Obstetrics and Gynecology 12/23/20 Sagrario Long MD [address] [place] [address] Consulting Physician Gastroenterology 12/23/20 documented as of this encounter
--- OUTSIDE RECORDS SUMMARY | 2025-07-30 17:16 | XMS_ITS | Clinical Summary ---
Author Organization [facility] Address [address] [place] [address] Phone Care Team Providers Care Jail Keeper Name Role Phone Senait Campa SUPERVISOR PLASMA, WEB ART DIRECTOR Primary Care Prov ider Allergies Active Allergy Reactions Criticality Noted Date Comments Amoxicillin Rash Medium 03/25/2022 Losartan Diarrhea Low 04/24/2019 Medications fluticasone (FLONASE) 50 MCG/ACT Suspension USE 2 SPRAYS IN EACH NOSTRIL ONCE DAILY 02/06/20 21 Active Cholecalciferol 2000 UNIT Capsule TAKE 1 CAPSULE BY MOUTH EVERY DAY 01/06/20 21 Active B Complex Vitamins Capsule Take 1 Capsule by mouth. Active augmented betamethasone dipropionate (DIPROLENE-AF) 0.05 % Ointment Apply 2 times daily. Application Site: Right forearm rash 45 g 10/27/19 24 Active Additional Information Patient not taking.Reported on 05/27/2025 buPROPion (WELLBUTRIN) 150 MG XL tabletIndication s:Tobacco abuse TAKE 1 TABLET BY MOUTH EVERY DAY IN THE MORNING 90 Tablet 02/25/20 24 Active Additional Information Patient not taking.Reported on 05/27/2025 ibuprofen (MOTRIN) 600 MG TabletIndication s:Sternal pain Take 1 Tablet by mouth every 6 hours as needed for Severe pain. 30 Tablet 3 08/30/19 25 Active magnesium oxide (MAG-OX) 400 MG TabletIndication s:Hypomagnesemia TAKE 1 TABLET BY MOUTH TWICE A DAY 60 Tablet 5 02/07/20 25 Active amLODIPine (NORVASC) 5 MG TabletIndication s:Benign hypertension TAKE 1 TABLET BY MOUTH EVERY DAY 90 Tablet 1 02/19/20 25 Active hydroCHLOROthiaz nakul 25 MG Tablet TAKE 1 TABLET BY MOUTH EVERY DAY 90 Tablet 1 02/22/20 25 Active pantoprazole (PROTONIX) 40 MG Tablet Delayed ResponseIndicati ons:GERD with stricture TAKE 1 TABLET BY MOUTH EVERY DAY 90 Tablet 1 02/24/20 25 Active albuterol 108 (90 Base) MCG/ACT Aerosol Solution take 2 Puffs by inhalation every 4 hours as needed for Wheezing. 18 g 2 06/24/20 25 Active cetirizine (ZyrTEC) 10 MG Tablet TAKE 1 TABLET BY MOUTH DAILY NEEDED FOR ALLERGIES. 90 Tablet 07/07/20 25 Active cetirizine (ZyrTEC) 10 MG Tablet Take 1 Tablet by mouth daily as needed for Allergies. 30 Tablet 2 04/10/20 25 2024 Discontinued Active Problems Problem Noted Date Diagnosed Date Hypomagnesemia 01/10/2025 COPD exacerbation 10/29/2022 Hematoma 03/23/2021 Benign hypertension 06/28/2017 Family history of malignant neoplasm of colon Overview (03/25/2022): Family history of colon cancer Added automatically from request for surgery [id number] GERD with stricture 01/11/2014 Overview (03/25/2022): GERD with stricture has required dilatation x2 2008, and 2014: 2008 GERD ring dilatation POSTPROCEDURE DIAGNOSES: 1. Dysphagia with evidence of distal esophageal ring, status post dilatation to 60 [place]. 2. Gastroesophageal reflux disease. Dr. Cruz Peñaloza [...] Peñaloza Added automatically from request for surgery [id number] History of cervical cancer 01/11/2014 Overview (03/25/2022): [...] Encounters Date Type Department Care Team Description 07/05/2025 Refill [facility] [address] [place] [address] Senait Campa APRN, WEB ART DIRECTOR Medication Refill 06/23/2025 MyChart RX Renewal [facility] [address] [place] [address] Senait Campa APRN, WEB ART DIRECTOR Medication Renewal Reviewed 06/06/2025 9:00 AM CDT Clinical Support [facility] [address] [place] [address] Senait Campa APRN, WEB ART DIRECTOR Hypomagnesemia (Primary Dx) Discharge Disposition: Discharged to home or Selfcare 06/06/2025 Travel 06/05/20[facility] [address] [place] [phone] Senait Campa APRN, WEB ART DIRECTOR 06/04/2025 Travel 06/03/2025 [facility] [address] [place] [address] [phone] Senait Campa APRN, EDWIN Labs Only 06/02/2025 Results Follow-Up [facility] [address] [place] [phone] Senait Campa APRN, WEB ART DIRECTOR CMP (COMPREHENSIVE METABOLIC PANEL), LIPID PANEL, VITAMIN D, 25 HYDROXY TOTAL, Additional followed-up results: 5 06/01/2025 Telephone [facility] [address] [place] [phone] Wesly Garcia MD 05/31/2025 [facility] [address] [place] [address] [phone] Senait Campa APRN, WEB ART DIRECTOR Results 05/31/2025 Travel 05/27/2025 2:30 PM CDT Office Visit [facility] [address] [place] [phone] Senait Campa APRN, WEB ART DIRECTOR Benign hypertension (Primary Dx); Hypomagnesemia; GERD with stricture; Microcytic anemia Discharge Disposition: Discharged to home or Selfcare 05/27/2025 Travel 05/18/2025 Refill [facility] [address] [place] [phone] Senait Campa APRN, WEB ART DIRECTOR Medication Refill 05/04/2025 MyChart RX Renewal [facility] [place] [address] [place] [address] Senait Campa, SUPERVISOR PLASMA, WEB ART DIRECTOR Medication Renewal Reviewed from Last 3 Months Immunizations Immunization Administration [...] Comments Brother Manfred Barnes (HERSON) Alive Father Manfred Maternal Grandfather Maternal Grandmother Nida Mother Petrona Paternal Grandfather Marcus Paternal Grandmother Sister 1 Madalyn Alive Sister 2 Froilan Alive Social History Tobacco Use Types Packs/Day Years Used Date Smoking Tobacco: Every Day Cigarettes 1 30.5 Started: 01/1995 Smokeless Tobacco: Never Tobacco Cessation:Ready to Q uit: Yes; Counseling Given: Yes Alcohol Use Standard Drinks/Week Comments Yes 9 (1 standard drink = 0.6 oz pure alcohol) 2-3 cocktails at night occasionally [employer] Util[employer] Answer Date Recorded In the past 12 months has [place], gas, oil, or water [place] threatened to shut off services in your [...] any clubs o r organizations such as denominational groups, unions, fraternal or athletic groups, or [...] Recorded Total Score - Questions 1-9 0 04/30 [facility] - Occupational Stress [...] place to sleep or slept in a snf (including now)? No 11/20/2023 Housing Stability Vital Sign Answer Ephraim e Recorded In the last 12 months, was t here a time when you were not able to pay the mortgage or rent on time? No 01/08/2025 In the past 12 months, how m any times have you moved where you were living? 0 01/08/2025 At any time in the [facility], were you homeless or living in a snf (including now)? No 01/08/2025 Education Answer Date [...] CDT Gender Identity Female 07/16/2023 1:26 PM [employer] Sexual Orientation Not on file Last Filed Vital Signs Vital Sign Reading Time Taken Comments Blood Pressure 132/78 06/06/2025 9:41 AM CDT Pulse 92 06/06/2025 9:41 AM CDT Temperature 36.1 C (96.9 F) 06/06/2025 9:41 AM CDT Respiratory Rate 20 06/06/2025 9:41 AM CDT Oxygen Saturation 97% 06/06/2025 9:41 AM CDT Inhaled Oxygen Concentration - - Weight 59.4 kg (131 lb) 05/27/2025 2:42 PM CDT Height 167.6 cm (5' 6) 05/27/2025 2:42 PM CDT Body Mass Index 21.14 05/27/2025 2:42 PM CDT Plan of Treatment Upcoming Encounters Date Type Department Care Team (Late st Contact Info) Description 11/28/2025 12:45 PM CDT Office Visit [facility] [place] [address] [place] [address] Senait Campa APRN, WEB ART DIRECTOR [address] [phone] Health Maintenance Due Date Last Done Comments Pneumococcal Immunization (50+ years) (1 of 2 - PCV) 01/27/1984 Zoster Immunization (1 of 2) 01/27/1984 Cologuard 2010 Immunochemical Fecal Occult Blood 2010 Respiratory Syncytial Virus (RSV) Immunization (Adult) (1 - Risk 50-74 years 1-dose series) 2015 Colonoscopy 04/14/2025 04/14/2020 Colorectal Cancer Screening 04/14/2025 Influenza Immunization (#1) 2025 11/21/2024 Lung Cancer Screening 01/02/2026 01/02/2025, 023 Mammogram 06/24/2026 06/24/2025, 05/29, 06/20/2024, Additional history exists Td Immunization Every 10 Years (Adults With [...] Procedure Name Priority Date/Time Associated Diagnosis Comments MAMMOGRAM BILATERAL GENERIC 06/24/2025 12:00 AM CDT CMP (COMPREHENSIVE METABOLIC PANEL) Routine 06/04/2025 4:00 PM CDT Hypomagnesemia MAGNESIUM (MG) Routine 06/04/2025 4:00 PM CDT Hypomagnesemia THYROID SCREEN WITH REFLEX Routine 05/31/2025 8:20 AM CDT Benign hypertension CBC WITH AUTO DIFFERENTIAL Routine 05/31/2025 8:20 AM CDT Benign hypertension MAGNESIUM (MG) Routine 05/31/2025 8:20 AM CDT Hypomagnesemia IRON,TRANSFERN,CALC.T IBC,%SAT Routine 05/31/2025 8:20 AM CDT Microcytic anemia VITAMIN B12 Routine 05/31/2025 8:20 AM CDT Benign hypertension GERD with stricture VITAMIN D, 25 HYDROXY TOTAL Routine 05/31/2025 8:20 AM CDT Benign hypertension GERD with stricture THYROID SCREEN WITH REFLEX Routine 05/31/2025 8:20 AM CDT Benign hypertension COMPLETE BLOOD COUNT (CBC) WITH DIFF Routine 05/31/2025 8:20 AM CDT Benign hypertension LIPID PANEL Routine 05/31/2025 8:20 AM CDT Benign hypertension CMP (COMPREHENSIVE METABOLIC PANEL) Routine 05/31/2025 8:20 AM CDT Benign hypertension CT CHEST SCREENING WO Routine 01/02/2025 3:58 PM CDT Encounter for screening for lung cancer from Last 3 Months or Most Recently Relevant to Health Maintenance Results * MAMMOGRAM BILATERAL GENERIC (06/24/2025 12:00 AM CDT) 06/24/2025 us Provider Scan IMG MAMMO ORDERABLES Final Resul t SCAN * (ABNORMAL) MAGNESIUM (MG) (06/04/2025 4:00 PM CDT) Only the most recent of2 resultswithin the time period is included. MAGNESIUM 1.3(L) 1.6 - 2.6 mg/dL 06/04/2025 5:48 PM CDT [facility] Blood Venipuncture / Unknown 06/04/2025 4:00 PM CDT 06/04/2025 5:16 PM CDT us Senait Campa SUPERVISOR PLASMA, EDWIN CHEMISTRY ORDERABL ES Final Result [facility] [address] [place] [address] * (ABNORMAL) CMP (COMPREHENSIVE METABOLIC PANEL) (06/04/2025 4:00 PM CDT) Only the most recent of2 resultswithin the time period is included. Pathologist [facility] SODIUM 133(L) 136 - 145 mmol/L 06/04/2025 5:48 PM CDT [facility] POTASSIUM 3.6 3.5 - 5.1 mmol/L 06/04/2025 5:48 PM CDT [facility] CHLORIDE 96(L) 98 - 107 mmol/L 06/04/2025 5:48 PM CDT [facility] CO2, VENOUS 27 22 - 30 mmol/L 06/04/2025 5:48 PM CDT [facility] ANION GAP 13.6 <18.0 mmol/L 06/04/2025 5:48 PM CDT [facility] GLUCOSE 90 70 - 99 mg/dL 06/04/2025 5:48 PM CDT [facility] BUN 15 10 - 20 mg/dL 06/04/2025 5:48 PM CDT [facility] CREATININE, BLOOD 0.78 0.60 - 1.00 mg/dL 06/04/2025 5:48 PM CDT [facility] BUN/CREATININE RATIO 19 12 - 20 ratio 06/04/2025 5:48 PM CDT [facility] TOTAL PROTEIN 7.2 6.0 - 8.0 g/dL 06/04/2025 5:48 PM CDT [facility] ALBUMIN 4.7 3.5 - 5.0 g/dL 06/04/2025 5:48 PM [facility] A/G RATIO 1.9 1.0 - 2.2 06/04/2025 5:48 PM CDT [facility] CALCIUM 9.3 8.7 - 10.5 mg/dL 06/04/2025 5:48 PM T [facility] T BILI 0.4 0.2 - 1.2 mg/dL 06/04/2025 5:48 PM CDT [facility] SGOT (AST) 22 <43 U/L 06/04/2025 5:48 PM [facility] SGPT (ALT) 12 <56 U/L 06/04/2025 5:48 PM T [facility] ALKALINE PHOSPHATASE 46 40 - 150 U/L 06/04/2025 5:48 PM [facility] IS THE PATIENT REQUIRED TO BE FASTING? No 06/04/2025 5:48 PM [facility] GFR, ESTIMATED >60 >=60 06/04/2025 5:48 PM T [facility] Comment: Creatinine Clearance is the preferred criteria for selecting drug dose adjustments in renally impaired patients. The GFR is provided as additional pertinent clinical information. GFR is reported in mL/min/1.73 sq m. Calculation based on the 2020 Chronic Kidney Disease Epidemiology Collaboration (CKD-EPI) equation refit without adjustment for race. GFR, EST. >60 >=60 025 5:48 PM [facility] Comment: Creatinine Clearance is the preferred criteria for selecting drug dose adjustments in renally impaired patients. The GFR is provided as additional pertinent clinical information. GFR is reported in mL/min/1.73 sq m. Calculation based on the 2009 Chronic Kidney Disease Epidemiology Collaboration (CKD-EPI). GFR, EST. NONAFRICAN >60 >=60 06/04/2025 5:48 PM CDT [facility] Comment: Creatinine Clearance is the preferred criteria for selecting drug dose adjustments in renally impaired patients. The GFR is provided as additional pertinent clinical information. GFR is reported in mL/min/1.73 sq m. Calculation based on the 2009 Chronic Kidney Disease Epidemiology Collaboration (CKD-EPI). Blood Venipuncture / Unknown 06/04/2025 4:00 PM CDT 06/04/2025 5:16 PM CDT us Senait Campa APRN, EDWIN CHEMISTRY ORDERABL ES Final Result [facility] [address] [place] [address] * VITAMIN D, 25 HYDROXY TOTAL (05/31/2025 8:20 AM CDT) VITAMIN D, 25 HYDROX 51.0 ng/mL 05/31/2025 9:32 AM CDT [facility] Blood Venipuncture / Unknown 05/31/2025 8:20 AM CDT 05/31/2025 8:42 AM CDT Narrative [facility] - 05/31/2025 9:32 AM CDT Published reference ranges for Vitamin D vary depending on time and place and method of testing, and on patient's age, sex, ethnicity and levels of other measured analytes such as parathormone, calcium and phosphorus. The result should be evaluated in conjunction with clinical findings and suspicions. [place] [employer] [facility] Clinical Practice Guidelines: Status Vitamin D levels (ng/mL) Deficient <=20 At risk of inadequacy 21-29 Sufficient 30-100 Centers of Disease Control and Prevention Guidelines: Status Vitamin D levels (ng/mL) Deficient <13 At risk of inadequacy 13-19 Sufficient 20-50 Possibly harmful >50 References: [place] [employer], 2010 Dietary reference intakes for calcium and vitamin D. [place]: The National Academies Press. Adolfo Leekley N, Terra LARA, et al., Evaluation, treatment, and prevention of Vitamin D deficiency: an Endocrinology Clinical Practice Guideline. JCEM 2011 96: 7 2966-4587. Alphonso A, Chano C, Mj D, et al., Vitamin D Status: [place], 7329-5030, [facility] data brief, no. 59, MD [place]: [facility] Statistics. 2011. Senait Campa SUPERVISOR PLASMA, WEB ART DIRECTOR CHEMISTRY ORDERABL ES Final Result Performing Organization Address City/[facility]/ZIP Co de Phone Number [facility] [place] [address] * IRON,TRANSFERN,CALC.TIBC,%SAT (05/31/2025 8:20 AM CDT) IRON 142 25 - 156 mcg/dL 05/31/2025 10:00 AM CDT [facility] TRANSFERRIN 280 173 - 360 mg/dL 05/31/2025 10:00 AM CDT [facility] TIBC, CALCULATED 350 265 - 497 mcg/dL 05/31/2025 10:00 AM CDT [facility] % SATURATION * 41 15 - 62 % 05/31/2025 10:00 AM CDT [facility] Blood Venipuncture / Unknown 05/31/2025 8:20 AM CDT 05/31/2025 8:42 AM CDT us Senait Campa SUPERVISOR PLASMA, WEB ART DIRECTOR CHEMISTRY ORDERABL ES Final Result Performing Organization Address [facility] Co de Phone Number [facility] [address] [place] [address] * THYROID SCREEN WITH REFLEX (05/31/2025 8:20 AM CDT) TSH 1.599 0.300 - 5.000 mIU/L 05/31/2025 9:24 AM CDT [facility] Blood Venipuncture / Unknown 05/31/2025 8:20 AM CDT 05/31/2025 8:42 AM CDT us Senait Campa SUPERVISOR PLASMA, WEB ART DIRECTOR CHEMISTRY ORDERABL ES Final Result [facility] [address] [place] [address] * (ABNORMAL) CBC WITH AUTO DIFFERENTIAL (05/31/2025 8:20 AM CDT) WBC 6.44 4.00 - 12.00 10(3)/mcL 05/31/2025 8:46 AM CDT [facility] RBC 4.15 3.80 - 5.30 10(6)/mcL 05/31/2025 8:46 AM CDT [facility] HEMOGLOBIN (HGB) 14.2 12.0 - 15.8 g/dL 05/31/2025 8:46 AM CDT [facility] HEMATOCRIT (HCT) 39.3 36.0 - 47.0 % 05/31/2025 8:46 AM CDT [facility] MCV 94.7 82.0 - 96.0 fL 05/31/2025 8:46 AM CDT [facility] MCH 34.2(H) 26.0 - 34.0 pg 05/31/2025 8:46 AM CDT [facility] MCHC 36.1(H) 31.0 - 36.0 g/dL 05/31/2025 8:46 AM CDT [facility] PLATELET COUNT 292 140 - 440 10(3)/mcL 05/31/2025 8:46 AM CDT [facility] RDW 11.7(L) 11.8 - 15.5 % 05/31/2025 8:46 AM CDT [facility] MPV 8.4(L) 9.7 - 12.4 fL 05/31/2025 8:46 AM CDT [facility] NEUTROPHILS 54.5 47.0 - 73.0 % 05/31/2025 8:46 AM CDT [facility] LYMPHOCYTES 23.6 18.0 - 42.0 % 05/31/2025 8:46 AM CDT [facility] MONOCYTES 17.1(H) 4.0 - 12.0 % 05/31/2025 8:46 AM T [facility] EOSINOPHILS 3.3 0.0 - 5.0 % 05/31/2025 8:46 AM T [facility] BASOPHILS 1.2(H) 0.0 - 1.0 % 05/31/2025 8:46 AM T [facility] IMMATURE GRANULOCYTE 0.3 0.0 - 0.4 % 05/31/2025 8:46 AM [facility] ABSOLUTE NEUTROPHILS 3.51 1.60 - 7.70 10(3)/mcL 05/31/2025 8:46 AM [facility] ABSOLUTE LYMPHOCYTES 1.52 1.30 - 3.20 10(3)/mcL 05/31/2025 8:46 AM [facility] ABSOLUTE MONOCYTES 1.10(H) 0.20 - 1.00 10(3)/mcL 05/31/2025 8:46 AM T [facility] ABSOLUTE EOSINOPHIL 0.21 0.00 - 0.40 10(3)/[facility] 05/31/2025 8:46 AM T [facility] ABSOLUTE BASOPHILS 0.08 0.00 - 0.10 10(3)/mcL 05/31/2025 8:46 AM [facility] ABSOLUTE IMMATURE GRANULOCYTE 0.02 0.00 - 0.03 10 (3) mcL. 05/31/2025 8:46 AM [facility] NRBC PER 100 WBC 0 05/31/20 8:46 AM [facility] Blood Venipuncture / Unknown 05/31/2025 8:20 AM CDT 05/31/2025 8:42 AM CDT us Senait Campa SUPERVISOR PLASMA, WEB ART DIRECTOR HEMATOLOGY ORDERAB LES Final Result Performing Organization Address City/[facility]/ZIP Co de Phone Number [facility] [address] [place] [address] * VITAMIN B12 (05/31/2025 8:20 AM CDT) VITAMIN B12 738 213 - 816 pg/mL 05/31/2025 9:32 AM CDT [facility] Blood Venipuncture / Unknown 05/31/2025 8:20 AM CDT 05/31/2025 8:42 AM CDT us Senait Campa SUPERVISOR PLASMA, WEB ART DIRECTOR CHEMISTRY ORDERABL ES Final Result Performing Organization Address [facility] Co de Phone Number [facility] [address] [place] [address] * (ABNORMAL) LIPID PANEL (05/31/2025 8:20 AM CDT) CHOLESTEROL 263(H) <200 mg/dL 05/31/2025 10:00 AM CDT [facility] TRIGLYCERIDES 73 <150 mg/dL 05/31/2025 10:00 AM CDT [facility] HDL CHOLESTEROL 103 >40 mg/dL 10:00 AM CDT [facility] LDL 145(H) <130 mg/dL 05/31/2025 10:00 AM CDT [facility] VLDL 15 10 - 50 mg/dL 05/31/2025 10:00 AM CDT [facility] CHOL/HDL RATIO 2.6 0.0 - 4.4 05/31/2025 10:00 AM CDT [facility] NON-HDL CHOLESTEROL 160(H) <130 mg/dL 05/31/2025 10:00 AM CDT [facility] IS THE PATIENT REQUIRED TO BE FASTING? Yes 05/31/2025 10:00 AM CDT [facility] HAS THE PATIENT BEEN FASTING? Yes 05/31/2025 10:00 AM CDT [facility] Blood Venipuncture / Unknown 05/31/2025 8:20 AM CDT 05/31/2025 8:42 AM CDT Narrative [facility] - 05/31/2025 10:00 AM CDT NCEP GUIDELINES FOR LIPID INTERPRETATION TOTAL CHOLESTEROL DESIRABLE <200 BORDERLINE 200-239 HIGH >=240 LDL CHOLESTEROL OPTIMAL <100 NEAR OPTIMAL 100-129 BORDERLINE 130-159 HIGH 160-189 VERY HIGH >=190 Calculated using the Friedewald equation. HDL CHOLESTEROL LOW <40 *HIGH >=60 TRIGLYCERIDES NORMAL <150 BORDERLINE 150-199 HIGH 200-499 VERY HIGH >=500 VLDL calculated using Triglycerides/5. *HDL CHOLESTEROL >=60 mg/dL counts as a negative risk factor; its presence removes one risk factor from the total. Based on guidelines from the National Cholesterol Education Program, desirable levels for non HDL cholesterol are 30 mg/dL above target levels for LDL cholesterol. us Senait Campa SUPERVISOR PLASMA, WEB ART DIRECTOR CHEMISTRY ORDERABL ES Final Result [facility] [address] [place] [address] * CT CHEST SCREENING WO (01/02/2025 3:58 [...] Paolo Solis D.O. PS: PS Report ID: [id number] Reading Location: [id number] Procedure Note Paolo Solis DO - 01/08/2025 [...] Paolo Solis D.O. PS: PS Report ID: [id number] Reading Location: [place] [address] IMPRESSION: Redemonstration of scattered small pulmonary nodules [...] of chest in 12 months. Senait Campa SUPERVISOR PLASMA, WEB ART DIRECTOR IMG CT ORDERABLES Final Result from Last 3 Months or Most Recently Relevant to Health Maintenance Insurance [facility] Advance Directives * Full Code (Latest Code Status on File) Date Activated Date Inactivated Comments 10/27/2022 11:33 PM 10/29/2022 3:01 PM CPR-Full Bek[place] tment: FULL ARREST: Attempt Resuscitation/CPR wit intubation and mechanical ventilation. PRE-ARREST: Use entire range of life support measures to stabilize the patient. Care Teams Jail Keeper Relationship Specialty Start Date End Date Senait Campa, SUPERVISOR PLASMA, WEB ART DIRECTOR #[address] [phone] PCP - General Advanced Practice Nurse 07/26/22
--- OUTSIDE RECORDS SUMMARY | 2025-07-30 17:16 | XMS_ITS | Encounter Summary ---
Author Organization [facility] Address [address] [place] [address] Phone Care Team Providers Care Wire Winder Name Role Phone Renay Elmore MD Primary Care Provider + [phone] Jena Mcwilliams MD Unavailable [phone] Cruz Peñaloza Unavailable Unavail able Val Baker MD Unavailable [phone] Nazia Terry MD Unavailable [phone] Sagrario Long MD Unavailable [phone] Senait Campa NP Primary Care Provider + Encounter Details Date Type Department Care Team (Late st Contact Info) Description 12/07/2017 Orders Only [facility] [address] [facility] [place] [address] Renay Elmore MD [address] [place], [place] [id number] Social History Tobacco Use Types Packs/Day Years Used Date Smoking Tobacco: Every Day Cigarettes 0.5 38.9 Started: 1986 Smokeless Tobacco: Never Alcohol Use Standard Drinks/Week Comments Yes 0 (1 standard drink = 0.6 oz pur e alcohol) Comments No Sex and Gender Information Value Date Recorded Sex Assigned at Not on file Legal Sex Female 1:44 AM SILICATOR Gender Identity Not on file Sexual Orientation [...] COVID: Suspected 07/12/2020 07/12/2020 07/13/2020 9:58 PM SILICATOR Respiratory Infection (ALEXANDER), contact + droplet Comment:Automatically added due to negative COVID-19 result. 07/13/2020 07/13/2020 07/27/2020 3:0 8 AM SILICATOR documented as of this encounter Care Teams Wire Winder Relationship Specialty Start Date End Date Renay Elmore MD PCP - General 11/25/16 10/04/22 Senait Campa NP [address] [address] PCP - General Nurse Practitioner 10/05/22 Jena Mcwilliams MD [phone] [place] [address] Consulting Physician Gynecologic Oncology 06/24/1711/27 Cruz Peñaloza [phone] [place] [address] Gastroenterology 06/28/17 12/22/20 Val Baker MD [address] [place] [address] Environmental Technician Obstetrics and Gynecology 09/20/17 12/22/20 Nazia Terry MD [address] [place] [address] Environmental Technician Obstetrics and Gynecology 12/23/20 Sagrario Long MD [address] [place] [address] Consulting Physician Gastroenterology 12/23/20 documented as of this encounter
--- OUTSIDE RECORDS SUMMARY | 2025-07-30 17:16 | XMS_ITS | Encounter Summary ---
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 Gender Identity Not on file Sexual Orientation Not on file 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 file Not on file Not on file documented as of this encounter Plan of Treatment Not on file documented as of this encounter Visit Diagnoses Not on filedocumented in this encounter Care Teams What Job Titles Mean Relationship Specialty Start Date End Date Renay Elmore MD PCP - General 11/25/16 10/04/22 Senait Campa NP [facility] [address] [place] [address] PCP - General Nurse Practitioner 10/05/22 Nazia Terry MD [address] [place] [address] Coverage Analyst Obstetrics and Gynecology 12/23/20 Sagrario Long MD [address] [place] [address] Consulting Physician Gastroenterology 12/23/20 documented as of this encounter
--- OUTSIDE RECORDS SUMMARY | 2025-07-30 17:16 | XMS_ITS | Encounter Summary ---
Author Organization [facility] Address [address] [place] [address] Phone Care Team Providers Care General Matcher Name Role Phone Senait Campa APRN, CIVIL ENGINEER IN TRAINING Primary Care Prov ider Reason for Visit * Reason Comments Medication Refill Encounter Details Date Type Department Care Team (Late st Contact Info) Description 08/31/2024 Refill [facility] [address] [place] [address] Cezar Barclay MD #[address] [address] Medication Refill Social History Tobacco Use Types Packs/Day Years Used Date Smoking Tobacco: Every Day Cigarettes 1 30 Smokeless Tobacco: Never Alcohol Use Standard Drinks/Week Comments Yes 7 (1 standard drink = 0.6 oz pur e alcohol) 2-3 cocktails per night [facility] Utilities Answer Date Recorded In the past 12 months has [employer] electric, gas, oil, or water company threatened [...] often do you attend chur ch or christianity services? More than 4 times per year 11/20/2023 Do you belong to any clubs o r organizations such as episcopal groups, unions, fraternal or athletic groups, or [...] Total Score - Questions 1-9 0 10/27 [facility] of Occupat ional [facility] - Occupational Stress Questionnaire Answer Date [...] place to sleep or slept in a fpc (including now)? No 11/20/2023 Education Answer Date [...] CDT Gender Identity Female 07/16/2023 1:26 PM PHOTO EDITOR Sexual Orientation Not on file documented as of this encounter Miscellaneous Notes * Telephone Encounter - Dior Amaya RN - 09/02/2024 10:59 AM PHOTO EDITOR Disp Refills Start End albuterol 108 (90 [...] Receipt confirmed by pharmacy (08/30/2024 7:11 PM PHOTO EDITOR) O EDITOR documented in this encounter Plan of Treatment Upcoming Encounters Date Type Department Care Team (Late st Contact Info) Description 11/28/2025 12:45 PM CDT Office Visit [facility] Family [facility] [address] [place] [address] Senait Campa APRN, CIVIL ENGINEER IN TRAINING #[address] [phone] documented as of this encounter Visit Diagnoses Not on filedocumented in this encounter Additional Health Concerns Assessment Noted Time PHQ-9 Depression Total Score: 0 11/21/19 24 2:23 PM CDT documented as of this encounter Care Teams General Matcher Relationship Specialty Start Date End Date Senait Campa APRN, CIVIL ENGINEER IN TRAINING [address] [phone] PCP - General Advanced Practice Nurse 07/26/22 documented as of this encounter
--- OUTSIDE RECORDS SUMMARY | 2025-07-30 17:16 | XMS_ITS | Encounter Summary ---
Author Organization [facility] Address [address] [place] [address] Phone Care Team Providers Care Change Analyst Name Role Phone Senait Campa APRN, DEPUTY ASSESSOR Primary Care Prov ider Reason for Visit * Reason Onset Date Comments Shortness of Breath 09/27/2022 Encounter Details Date Type Department Care Team (Late st Contact Info) Description 09/27/2022 Telephone [facility] [address] [place] [address] Senait Campa APRN, DEPUTY ASSESSOR [address] [address] Shortness of Breath Social History [...] CDT Gender Identity Female 07/16/2023 1:26 PM AIRLINE LOUNGE RECEPTIONIST Sexual Orientation Not on file COVID-19 Exposure Response Date Recorded In the last 10 days, have yo u been in contact with someone who was confirmed or suspected to have Coronavirus/COVID-19? No / Unsure 09/30/2022 3:34 PM AIRLINE LOUNGE RECEPTIONIST documented as of this encounter Miscellaneous Notes * Telephone Encounter - Meredith Rush CNA - 09/27/2022 2:15 PM AIRLINE LOUNGE RECEPTIONIST Patient states she is in touch with her office. INE LOUNGE RECEPTIONIST * Telephone Encounter - Christine Bishop APRN, CNP - 09/27/2022 1:58 PM AIRLINE LOUNGE RECEPTIONIST She is not a patient in this office INE LOUNGE RECEPTIONIST * Telephone Encounter - Cheyanne Zamora RN [...] triage. No appointments available today. Please advise. INE LOUNGE RECEPTIONIST documented in this encounter Plan of Treatment Upcoming Encounters Date Type Department Care Team (Late st Contact Info) Description 11/28/2025 12:45 PM CDT Office Visit [facility] - [facility] [address] [place] [address] Senait Campa APRN, DEPUTY ASSESSOR #[address] [phone] documented as of this encounter Visit Diagnoses Not on filedocumented in this encounter Additional Health Concerns Infection Onset Date Last Indicated Resolved Time COVID - 19 10/27/2022 10/27/2022 10/28/2022 9:04 AM AIRLINE LOUNGE RECEPTIONIST Respiratory Rule Out - RPA 10/27/2022 10/28/2022 0 10/28/2022 3:53 PM AIRLINE LOUNGE RECEPTIONIST Assessment Noted Time PHQ-9 Depression Total Score: 2 03/25/20 22 4:00 PM CDT documented as of this encounter Care Teams Change Analyst Relationship Specialty Start Date End Date Senait Campa, PLASTIC DOLLS MOLD FILLER, DEPUTY ASSESSOR #[address] [phone] PCP - General Advanced Practice Nurse 07/26/22 documented as of this encounter
--- OUTSIDE RECORDS SUMMARY | 2025-07-30 17:16 | XMS_ITS | Encounter Summary ---
Author Organization [facility] Address [address] [place] [address] Phone Care Team Providers Care Knowledge Engineer Name Role Phone Senait Campa APRN, STORE GIFT WRAP ASSOCIATE Primary Care Prov ider Reason for Visit * Reason Comments Medication Refill Encounter Details Date Type Department Care Team (Late st Contact Info) Description 05/21/2024 Refill [facility] [address] [place] [address] Stefani Regalado, [facility] [address] [place] [address] Medication Refill Social History Tobacco Use Types Packs/Day Years Used Date Smoking Tobacco: Every Day Cigarettes 1 30 Smokeless Tobacco: Never Alcohol Use Standard Drinks/Week Comments Yes 7 (1 standard drink = 0.6 oz pur e alcohol) 2-3 cocktails per night [facility] Utilities Answer Date Recorded In the past 12 months has [employer] electric, gas, oil, or water company threatened [...] week 11/20/2023 How often do you attend [facility] or jew services? More than 4 times per year [...] Total Score - Questions 1-9 0 10/27 [facility] of Occupat ional [facility] - Occupational Stress Questionnaire Answer Date [...] place to sleep or slept in a jail (including now)? No 11/20/2023 Education Answer Date [...] CDT Gender Identity Female 07/16/2023 1:26 PM VICE PRESIDENT QUALITY IMPROVEMENT Sexual Orientation Not on file documented as of this encounter Miscellaneous Notes * Telephone Encounter - Marcella Burch RN - 05/22/2024 8:21 AM CDT Images from the original note were not included. traZODone HCl Dispensed Days Supply Quantity Provider Pharmacy TRAZODONE 100MG TAB 05/16/2024 90 90 Tab Stefani Regalado, PAC [id number] [facility] ... TRAZODONE 100 MG TABLET 02/12/2024 90 90 Stefani Regalado, PAC [facility] [address] [place] [facility] ... documented in this encounter Plan of Treatment Upcoming Encounters Date Type Department Care Team (Late st Contact Info) Description 11/28/2025 12:45 PM CDT Office Visit [facility] [address] [place] [address] Senait Campa, MELT HOUSE CENTRIFUGAL OPERATOR, STORE GIFT WRAP ASSOCIATE #[address] [phone] documented as of this encounter Visit Diagnoses Diagnosis Primary insomnia Persistent disorder of initiating or maintaining sleep documented in this encounter Additional Health Concerns Assessment Noted Time PHQ-9 Depression Total Score: 0 11/21/19 24 2:23 PM CDT documented as of this encounter Care Teams Knowledge Engineer Relationship Specialty Start Date End Date Senait Campa, MELT HOUSE CENTRIFUGAL OPERATOR, STORE GIFT WRAP ASSOCIATE #[address] [phone] PCP - General Advanced Practice Nurse 07/26/22 documented as of this encounter
--- OUTSIDE RECORDS SUMMARY | 2025-07-30 17:16 | XMS_ITS | Encounter Summary ---
Author Organization [facility] Address [address] [place] [address] Phone Care Team Providers Care Retail Sales Merchandiser Development Name Role Phone Senait Campa APRN, EDWIN Primary Care Prov ider Reason for Visit * Reason Comments Medication Refill Encounter Details Date Type Department Care Team (Late st Contact Info) Description 05/18/2024 Refill [facility] [address] [place] [address] Senait Campa APRN, PAYROLL ADMINISTRATOR #[address] [phone] Medication Refill Social History Tobacco Use Types Packs/Day Years Used Date Smoking Tobacco: Every Day Cigarettes 1 30 Smokeless Tobacco: Never Alcohol Use Standard Drinks/Week Comments Yes 7 (1 standard drink = 0.6 oz pur e alcohol) 2-3 cocktails per night [facility] Utilities Answer Date Recorded In the past 12 months has [employer] electric, gas, oil, or water company threatened [...] often do you attend chur ch or hoahaoism services? More than 4 times per year 11/20/2023 Do you belong to any clubs o r organizations such as scientologist groups, unions, fraternal or athletic groups, or [...] Total Score - Questions 1-9 0 10/27 [facility] of Occupat ional Health - [...] CDT Gender Identity Female 07/16/2023 1:26 PM DENTAL PROSTHETIST Sexual Orientation Not on file documented as of this encounter Miscellaneous Notes * Telephone Encounter - Marcella Burch RN - 05/20/2024 8:38 AM CDT Images from the original note were not included. Albuterol Sulfate Dispensed Days Supply Quantity Provider Pharmacy ALBUTEROL HFA 90 MCG INHALER 04/30/2024 25 6.7 g Senait Campa APRN, PAYROLL ADMINISTRATOR [facility] [phone] [facility] ... As needed inhaler documented in this encounter Plan of Treatment Upcoming Encounters Date Type Department Care Team (Late st Contact Info) Description 11/28/2025 12:45 PM CDT Office Visit [facility] - [facility] [address] [place] [phone] Senait Campa APRN, PAYROLL ADMINISTRATOR #[address] [phone] documented as of this encounter Visit Diagnoses Not on filedocumented in this encounter Additional Health Concerns Assessment Noted Time PHQ-9 Depression Total Score: 0 11/21/19 24 2:23 PM CDT documented as of this encounter Care Teams Retail Sales Merchandiser Development Relationship Specialty Start Date End Date Senait Campa APRN, PAYROLL ADMINISTRATOR [address] [place] [phone] PCP - General Advanced Practice Nurse 07/26/22 documented as of this encounter
--- OUTSIDE RECORDS SUMMARY | 2025-07-30 17:16 | XMS_ITS | Encounter Summary ---
Author Organization [facility] Address [address] [place] [address] Phone Care Team Providers Care Machine Precision Engraver Name Role Phone Senait Campa APRN, EDWIN Primary Care Prov ider Reason for Visit * Reason Comments Medication Refill Encounter Details Date Type Department Care Team (Late st Contact Info) Description 11/24/2024 Refill [facility] Medicine [facility] [address] [place] [address] Senait Campa APRN, ELECTRONIC TEST TECHNICIAN #[address] [phone] Medication Refill Social History Tobacco Use Types Packs/Day Years Used Date Smoking Tobacco: Every Day Cigarettes 1 30 Smokeless Tobacco: Never Alcohol Use Standard Drinks/Week Comments Yes 9 (1 standard drink = 0.6 oz pure alcohol) 2-3 cocktails at night occasionally [facility] Utilities Answer Date Recorded In the past 12 months has [employer], gas, oil, or water company threatened to [...] How often do you attend chur or quaker services? More than 4 times per year 11/21/2024 Do you belong to any clubs o r organizations such as voodoo groups, unions, fraternal or athletic groups, or [...] Total Score - Questions 1-9 0 10/27 [facility] of Occupat ional Health - Occupational Stress [...] in a retirement (including now)? No 11/20/2023 Housing Stability Vital Sign Answer Ephraim e Recorded In the last 12 months, was t here a time when you were not able to pay the mortgage or rent on time? No 11/21/2024 Number of Times Moved in the Last Year Not on fi le 11/21/2024 At any time in the past 12 m [place], were you homeless or living in a retirement (including now)? No 11/21/2024 Education Answer Date [...] CDT Gender Identity Female 07/16/2023 1:26 PM RACKER OCTAVE BOARD Sexual Orientation Not on file documented as of this encounter Miscellaneous Notes * Telephone Encounter - Marcella Burch RN - 11/25/2024 11:55 AM CDT duplicate documented in this encounter Plan of Treatment Upcoming Encounters Date Type Department Care Team (Late st Contact Info) Description 11/28/2025 12:45 PM CDT Office Visit [facility] - [facility] [address] [place] [address] Senait Campa, LOGGING OPERATIONS INSPECTOR, ELECTRONIC TEST TECHNICIAN [address] [facility] [phone] documented as of this encounter Visit Diagnoses Not on filedocumented in this encounter Additional Health Concerns Assessment Noted Time PHQ-9 Depression Total Score: 0 11/22/19 25 2:05 PM CDT documented as of this encounter Care Teams Machine Precision Engraver Relationship Specialty Start Date End Date Senait Campa APRN, ELECTRONIC TEST TECHNICIAN [address] [phone] PCP - General Advanced Practice Nurse 07/26/22 documented as of this encounter
--- OUTSIDE RECORDS SUMMARY | 2025-07-30 17:16 | XMS_ITS | Encounter Summary ---
Author Organization [facility] Address [address] [place] [address] Phone Care Team Providers Care Recruitment Assistant Name Role Phone Senait Campa APRN, EDWIN Primary Care Prov ider Reason for Visit * Reason Comments Medication Refill Encounter Details Date Type Department Care Team (Late st Contact Info) Description 02/12/2024 Refill [facility] [address] [place] [address] Senait Campa APRN, CUSHION BUILDER #[address] [phone] Medication Refill Social History Tobacco Use Types Packs/Day Years Used Date Smoking Tobacco: Every Day Cigarettes 1 30 Smokeless Tobacco: Never Alcohol Use Standard Drinks/Week Comments Yes 7 (1 standard drink = 0.6 oz pur e alcohol) 2-3 cocktails per night [facility] Utilities Answer Date Recorded In the past 12 months has [employer], gas, oil, or water company threatened to [...] often do you attend chur ch or confucianist services? More than 4 times per year 11/20/2023 Do you belong to any clubs o r organizations such as religious groups, unions, fraternal or athletic groups, or [...] Total Score - Questions 1-9 0 10/27 [facility] of Occupat ional Health - Occupational Stress [...] in a fci (including now)? No 11/20/2023 Education Answer Date [...] CDT Gender Identity Female 07/16/2023 1:26 PM ERGONOMICS TECHNICIAN Sexual Orientation Not on file documented as [...] Dept 11/21/23 Office Visit Senait Campa APRN, CUSHION BUILDER [facility] Showing recent visits within past [...] Description 11/28/2025 12:45 PM CDT Office Visit [facility] - Family Medicine [facility] [address] [place] [address] Senait Campa APRN, CUSHION BUILDER #[address] [phone] documented as of this encounter Visit Diagnoses Diagnosis Primary insomnia Persistent disorder of initiating or maintaining sleep documented in this encounter Additional Health Concerns Assessment Noted Time PHQ-9 Depression Total Score: 0 11/21/19 24 2:23 PM CDT documented as of this encounter Care Teams Recruitment Assistant Relationship Specialty Start Date End Date Senait Campa APRN, CUSHION BUILDER #[address] [phone] PCP - General Advanced Practice Nurse 07/26/22 documented as of this encounter
--- OUTSIDE RECORDS SUMMARY | 2025-07-30 17:16 | XMS_ITS | Clinical Summary ---
Author Organization [facility] Address [address] [place] [address] Care Team Providers Care Bellows Tester Name Role Phone Nazia Terry MD Unavailable Sagrario Long MD Unavailable [phone] Senait Campa NP Primary Care Provider + [...] Active Problems Problem Noted Date Diagnosed Date Moderate major depression 04/24/2025 Hematoma 03/23/2021 Left elbow pain 06/23/2020 Palpitations 06/23/2020 Night sweats 04/07/2020 Elevated LFTs 04/07/2020 History of adenomatous polyp of colon 10/31/2019 Overview (10/31/2019): Added automatically from request for surgery [id number] Family history of colon cancer in mother 020 Overview (10/31/2019): Added automatically from request for surgery [id number] Menopausal syndrome (hot flashes) 09/20/2017 Benign hypertension [...] esophageal ring, status post dilatation to 60 Sami. 2. Gastroesophageal reflux disease. Dr. Cruz Peñaloza [...] Encounters Date Type Department Care Team Description 06/24/2025 1:45 PM CDT - 06/24/2025 11:59 PM CDT Hospital Encounter [facility] Mammography [address] [place] [address] Encounter for screening mammogram for malignant neoplasm of breast Discharge Disposition: Discharge to home or self care from Last 3 Months Immunizations Immunization Administration Dates Next Due MMR 05/08/2019 Tdap 03/12/2021,03/28/2010 Surgical History Surgery Date Site/Laterality Comments KNEE ARTHROSCOPY 08/28/1980 - 08/27/1981 BREAST BIOPSY 08/28/2006 - 08/27/2007 Left microcalcification otherwise (-) [facility] TOTAL VAGINAL HYSTERECTOMY 08/28/2006 - 08/27/2007 cervical [...] Dysphagia 2009 COPD (chronic obstructive pulmonary disease) Hypertension GERD with stricture Colon polyp Family History Medical History Relation Name Comments Heart attack Father COD at age 56 Breast cancer Maternal Grandmother Diabetes Maternal Grandmother Hypertension Maternal Grandmother Lung cancer Maternal Grandmother Stroke Maternal Grandmother Colon cancer Mother Diabetes Mother Hypertension Mother Heart attack Mother's Brother 1 Stroke Mother's Brother 2 Breast cancer Paternal Grandmother Breast cancer Sister Hypertension Sister Relation Name Status Comments Father (Age 56) Maternal Grandmother Mother Mother's Brother 1 Mother's Brother 2 Paternal Grandmother Sister Social History Tobacco Use Types Packs/Day Years Used Date Smoking Tobacco: Every Day Cigarettes 0.8 38.9 Started: 1986 Smokeless Tobacco: Never Tobacco Cessation:Ready to Q uit: Not Asked; Counseling Given: Not Answered Alcohol Use Standard Drinks/Week Comments Yes 0 [...] on file Legal Sex Female 1:44 AM DIVER ASSISTANT Gender Identity Not on file Sexual Orientation Not on file 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 on file Not on file Not on file Obstetrics History Para Term AB IAB SAB Ectopic Multiple Livin g Live Births 0 0 0 0 0 0 0 0 0 0 0 Last Filed Vital Signs Vital Sign Reading Time Taken Comments Blood Pressure 148/89 04/23/2025 1:15 PM CDT Pulse 103 04/23/2025 1:15 PM CDT Temperature 36.3 C (97.3 F) 04/23/2025 1:15 PM CDT Respiratory Rate 18 04/07/2021 3:03 PM CDT Oxygen Saturation 98% 04/23/2025 1:15 PM CDT Inhaled Oxygen Concentration - - Weight 59.9 kg (132 lb) 06/24/2025 2:00 PM CDT Height 167.6 cm (5' 6) 06/24/2025 2:00 PM CDT Body Mass Index 21.31 06/24/2025 2:00 PM CDT Plan of Treatment Health Maintenance Due Date Last Done Comments Hepatitis B Screening 1983 Pneumococcal vaccine <65 (1 of 2 - PCV) 01/27/1984 Zoster Vaccine (1 of 2) 2015 Depression Screening 12/23/2021 12/23/2020 Regular Well Visit/Exam 18-64 12/23/2021, 10/30/2019, 09/04/2018, Additional history exists Influenza Vaccine (#1) 2025 11/21/2024 Lung Cancer Screening 01/02/2026 01/02/2025 Breast Cancer Screening-Mammogram 06/24/2026 06/24/2025, 06/20/2024, 10/05/2022, Additional history exists Colon Cancer Screening-Colonoscopy 04/14/2030 [...] Procedure Name Priority Date/Time Associated Diagnosis Comments SCREENING MAMMOGRAM BILATERAL W BRADLEY Schedule Routine, Read Routine (OP Routine) 06/24/2025 2:07 PM CDT Encounter for screening mammogram for malignant neoplasm of breast COLONOSCOPY 04/14/2020 7:31 AM CDT HEPATITIS C ANTIBODY Routine 03/12/2020 9:54 AM CDT Elevated liver function tests THINPREP IMAGING PAP AND HPV MRNA E6/E7 REFLEX HPV 16,18/45 Routine 11/15/2017 8:43 AM CDT from Last 3 Months or Most Recently Relevant to Health Maintenance Results * Screening Mammogram Bilateral W Bradley (06/24/2025 2:07 PM CDT) Anatomical Region Laterality Modality Breast Bilateral Mammography Impressions 06/25/2025 1:52 PM CDT Bilateral No evidence of malignancy in either breast. OVERALL BI-RADS FINAL ASSESSMENT: 2 - Benign RECOMMENDATION: Recommend bilateral annual screening mammography. If supplemental screening is desired for heterogeneously dense breast tissue, consider breast MRI every 1-2 years. If breast MRI cannot be performed, contrast-enhanced mammography is an alternative. Narrative 06/25/2025 1:52 PM CDT EXAMINATION: Screening Mammogram Bilateral W Bradley: 06/24/2025 COMPARISON: Relevant prior studies available at the time of interpretation were reviewed, including the most recent mammogram on: 06/20/2024. TECHNIQUE: Mammography was performed with 2D and 3D digital breast tomosynthesis (DBT) images. CAD was utilized. BREAST PARENCHYMAL COMPOSITION: The breasts are heterogeneously dense, which may obscure small masses. FINDINGS: Bilateral There is no suspicious mass, calcification, or architectural distortion in either breast. us Self Screening Mammogram IMG MAMMO PROCEDURES Fi nal Result * COLONOSCOPY (04/14/2020 7:31 AM CDT) Anatomical Region Laterality Modality Other Narrative Procedure Note Sagrario Long MD - 04/14/2020 7:31 AM CDT [facility] Patient Name: Stefani Verduzco Procedure Date: 04/14/2020 7:31 AM Date of : 1965 Admit Type: Outpatient Age: 55 Gender: Female Attending MD: Sagrario Long M.D. Room: [facility] ENDOSCOPY ROOM 1 Note Status: Finalized Patient [...] passed under direct vision. The PediatricColonoscope [id number]-H190L [id number] was introduced through the anusand advanced to [...] 7:31 AM Procedure Code(s): --- Professional --- 71044, Colonoscopy, flexible; diagnostic, including collection of specimen(s) by brushing or washing, when performed (separateprocedure) Diagnosis Code(s): --- Professional --- Z80.0, Family history of malignant neoplasm of digestive organs Z86.010, Personal history of colonic polyps K64.8, Other hemorrhoids CPT copyright 2017 [employer]. All rights reserved. The codes documented in this report are preliminary and upon medical record coder reviewmay be revised to meet current compliance requirements. Recognized by the [employer] for promoting quality [...] ORDERABLES Edited Result - Final ANNITA REDDY [address] [address] Turcios Department [place] [address] * ThinPrep Imaging Pap and HPV mRNA E6/E7 Reflex HPV 16,18/45 (11/15/2017 8:43 AM CDT) Report status CANCELED [facility] - Comment:Result canceled by t he ancillary CLINICAL INFORMATION: [facility] - [place] [...] [facility]AGNO[facility] - [place] Comment:Result canceled by t he ancillary HPV interp [facility] [place] Comment:Negative for intraep ithelial lesion or malignancy. Infection: CANCELED [facility] [place] Comment:Result canceled by t he ancillary COMMENTS [facility] [place] Comment: This Pap test has been evaluated with computer assisted technology. Acid Maker [facility] - Comment: MIMA, CT(ASCP) CT screening location: [place] [address] [place] [address] Review welder CANCELED [facility] - [place] Comment:Result canceled by t he ancillary Pathologist [facility]CELED [facility] [place] Comment:Result canceled by t he ancillary Comment [facility] [place] Comment: [...] High Risk E6/E7 Not Detected Not Detected [facility] - Comment: This test was performed using the APTIMA HPV Assay ([employer] This assay detects E6/E7 viral messenger RNA (mRNA) from 14 high-risk HPV types (16,18,31,33,35,39,45,51,52,56,58,59,66,68). 11/15/2017 8:43 AM CDT 11/16/2017 5:10 AM CDT Narrative Resulting Agency Comment Performing Organization Information: Site ID: Name: [facility] Address: [address] [place] [address] Director: Erica Terrell MD Renay Elmore MD LAB CYTOLOGY ORDERABLES Fi nal Result [facility] [employer] [facility] [place] from Last 3 Months or Most Recently Relevant to Health Maintenance Insurance [facility] BLUE ACCESS OOS BLUE ACCESS OOS BLUE ACCESS OOS Advance Directives For more information, please contact: [phone] Documents on File Type Date Recorded Patient Study Assistant Expl anation ADVANCE DIRECTIVE 05/24/2011 POWER OF A TTORNEY ADVANCE DIRECTIVE 05/24/2011 POWER OF A TTORNEY-MEDICAL * Full Code (Latest Code Status on File) Date Activated Date Inactivated Comments 04/14/2020 7:39 AM 04/14/2020 1:34 PM * Full Code Date Activated Date Inactivated Comments 04/14/2020 7:39 AM 04/14/2020 7:39 AM Care Teams Bellows Tester Relationship Specialty Start Date End Date Senait Campa ORTHOTIC ASSISTANT [address] [place] [place] [address] [place] [address] PCP - General Nurse Practitioner 10/05/22 Nazia Terry MD [address] [place] [address] Public Health Physician Obstetrics and Gynecology 12/23/20 Sagrario Long MD [address] [address] Consulting Physician Gastroenterology 12/23/20
--- OUTSIDE RECORDS SUMMARY | 2025-07-30 17:16 | XMS_ITS | Encounter Summary ---
Author Organization [facility] Address [address] [place] [address] Phone Care Team Providers Care Foreign Trade Teacher Name Role Phone Senait Campa APRN, COMMERCIAL BAKER HELPER Primary Care Prov ider Reason for Visit * Reason Comments Medication Refill Encounter Details Date Type Department Care Team (Late st Contact Info) Description 05/21/2024 Refill [facility] - [facility] [address] [place] [address] Cezar Barclay MD [address] [address] Medication Refill Social History Tobacco Use Types Packs/Day Years Used Date Smoking Tobacco: Every Day Cigarettes 1 30 Smokeless Tobacco: Never Alcohol Use Standard Drinks/Week Comments Yes 7 (1 standard drink = 0.6 oz pur e alcohol) 2-3 cocktails per night [facility] Utilities Answer Date Recorded In the past 12 months has [employer] electric, gas, oil, or water company threatened [...] often do you attend chur ch or mormonism services? More than 4 times per year 11/20/2023 Do you belong to any clubs o r organizations such as advent groups, unions, fraternal or athletic groups, or [...] Total Score - Questions 1-9 0 10/27 [facility] of Occupat ional [facility] - Occupational Stress Questionnaire Answer Date [...] place to sleep or slept in a correction (including now)? 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 hydroCHLOROthiazide Dispensed Days Supply Quantity Provider Pharmacy HYDROCHLOROT 25MG TAB 05/16/2024 90 90 Cezar Barclay MD [facility] [address] [facility] ... HYDROCHLOROTHIAZIDE 25 MG TAB 02/19/2024 90 90 Cezar Barclay MD [facility] [address] [facility] documented in this encounter Plan of Treatment Upcoming Encounters Date Type Department Care Team (Late st Contact Info) Description 11/28/2025 12:45 PM CDT Office Visit [facility] - [facility] Medicine - [place] [address] [place] [phone] Senait Campa, DIGITAL COMPUTER SYSTEMS ANALYST, COMMERCIAL BAKER HELPER [address] [phone] documented as of this encounter Visit Diagnoses Not on filedocumented in this encounter Additional Health Concerns Assessment Noted Time PHQ-9 Depression Total Score: 0 11/21/19 24 2:23 PM CDT documented as of this encounter Care Teams Foreign Trade Teacher Relationship Specialty Start Date End Date Senait Campa APRN, COMMERCIAL BAKER HELPER [address] [place] [phone] PCP - General Advanced Practice Nurse 07/26/22 documented as of this encounter
--- OUTSIDE RECORDS SUMMARY | 2025-07-30 17:16 | XMS_ITS | Encounter Summary ---
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 hydroCHLOROthiazide Dispensed Days Supply Quantity Provider Pharmacy HYDROCHLOROTHIAZIDE 25 MG TAB 10/12/2023 90 90 Each Cezar Barclay MD [facility] [address] IN [facility] ... HYDROCHLOROTHIAZIDE 25 MG TAB 07/17/2023 90 90 Each Cezar Barclay MD [facility] [address] [facility] ... OGRAPHIC PROCESSOR documented in this encounter Plan of Treatment Upcoming Encounters Date Type Department Care Team (Late st Contact Info) Description 11/28/2025 12:45 PM CDT Office Visit [facility] - [facility] Medicine [facility] [address] [place] [address] Senait Campa APRN, RESEARCH ELECTRICIAN [address] [address] documented as of this encounter Visit Diagnoses Not on filedocumented in this encounter Additional Health Concerns Assessment Noted Time PHQ-9 Depression Total Score: 2 03/25/20 22 4:00 PM CDT documented as of this encounter Care Teams Mud Jack Nozzleman Relationship Specialty Start Date End Date Senait Campa APRN, RESEARCH ELECTRICIAN [address] [address] PCP - General Advanced Practice Nurse 07/26/22 documented as of this encounter
--- NOTE | 2025-07-30 17:20 | ED.URI ---
HPI - URI/Sore Throat General Chief Complaint: Upper Respiratory Infection Stated Complaint: cough/congestion Time Seen by Provider: 07/30/25 17:20 Source: patient, RN notes reviewed and old records reviewed Mode of arrival: ambulatory Limitations: no limitations History of Present Illness HPI Narrative: 60 year old female who presents to [facility] care with complaints of cough with congestion, nasal congestion with drainage and headache for the past 4 days. Patient reports that she has been using her inhaler, taking Zyrted and Ibuprofen for her symptoms. Patient does have history of tobacco use for many years. Patient reports no sore throat. body aches or any fevers, chills or sweats. MD elicited complaint: cough (congestion, ), rhinorrhea, nasal congestion and other (headache) Pertinent past history: sinusitis and other (tobacco use) Onset (ago): day(s) (4) Severity: moderate Pain scale (0-10): 3 Able to tolerate fluids by mouth: Yes Treatments prior to arrival: ibuprofen and other (inhaler and zyrtec) Related Data Home Medications ?Medication ?Instructions ?Recorded ?Confirmed ?Last Taken ?Type diltiazem HCl 240 mg 240 mg PO DAILY 03/04/21 03/04/21 Unknown History capsule,extended release 24 hr, controlled pantoprazole 40 mg tablet,delayed 40 mg PO QAM 03/04/21 03/04/21 Unknown History release albuterol sulfate 90 mcg/actuation inhalation 03/05/25 Unknown History aerosol inhaler amlodipine 5 mg tablet mg 03/05/25 Unknown History cetirizine 10 mg tablet mg 03/05/25 Unknown History hydrochlorothiazide 25 mg tablet mg 03/05/25 Unknown History Allergies Allergy/AdvReac Type Severity Reaction Status Date / Time losartan Allergy Intermediate weight loss Verified 07/30/25 16:59 amoxicillin (From Amoxil) Allergy Hives Verified 07/30/25 16:59 Review of Systems Review of Systems: CONSTITUTIONAL: reports malaise,no chills, sweats, or fever. EYES: Denies visual changes, redness, or discharge. ENT: Reports rhinorrhea, congestion, sinus pain,no otalgia and no sore throat. CARDIOVASCULAR: Denies chest pain, palpitations, or edema. RESPIRATORY: Reports productive cough.? Denies dyspnea. GASTROINTESTINAL: Denies abdominal pain, nausea, vomiting, diarrhea SKIN: Denies rash or itching. MUSCULOSKELETAL: Denies myalgia. NEUROLOGIC: reports headache. All systems reviewed & are unremarkable except as noted in HPI and below PMFSH Past Medical History Medical History (Updated 08/01/25 @ 07:47 by Jessica Ashby APRN) Acute sinus infection Bronchitis Hypertension Social History Social History (Updated 08/01/25 @ 07:44 by Jessica Ashby APRN) Smoking status: Current every day smoker Tobacco type: cigarettes Alcohol intake: current Alcohol use details: social Substance use type: does not use Gender identity (if verbalized by the patient): Female Comments At time of signature, agree with nursing past medical, surgical, social and family history. There is no relevant family history pertinent to the presenting complaint Exam Narrative: GENERAL: Well-appearing, well-nourished, and in no acute distress. HEAD: Normocephalic EYES: PERRLA, conjunctivae clear ENT: Nares clear, turbinates edematous and erythematous, clear discharge, sinus pressure and headache. Mucous membranes moist. TM pearly king with dull light reflex bilaterally; no tragal tenderness. Oropharynx erythematous without lesions. Tonsils not enlarged and without exudate, no drooling, no hoarseness, no trismus, uvula midline.post nasal drainage NECK: Supple. No lymphadenopathy CHEST: faint scattered wheezes on auscultation, breath sounds equal.+ wheezing,no rhonchi, rales, or stridor. No respiratory distress, speaks in full sentences. productive cough frequeunt with some yellow phlegm, SAO2 95% on room air HEART: Regular rate and rhythm. No murmur heard. SKIN: Warm, dry, no rash. NEURO: Alert and oriented x3. PSYCH: Normal mood and affect Course Course Level of Care: Express Care Visit Vital Signs Vital signs: Vital Signs Temperature 36.1 C L 07/30/25 16:59 Pulse Rate 103 H 07/30/25 16:59 Respiratory Rate 16 07/30/25 16:59 Blood Pressure 156/91 H 07/30/25 16:59 Pulse Oximetry 95 07/30/25 16:59 Oxygen Delivery Room Air 07/30/25 16:59 Temperature 36.1 C L 07/30/25 16:59 Pulse Rate 103 H 12/03/25 16:59 Respiratory Rate 16 07/30/25 16:59 Blood Pressure 156/91 H 07/30/25 16:59 Pulse Oximetry 95 07/30/25 16:59 Oxygen Delivery Room Air 07/30/25 16:59 reviewed MDM MDM Narrative Medical decision making narrative: Medical decision making narrative: Differential diagnosis considered: Shay virus, strep pharyngitis, allergic rhinitis, upper respiratory tract infection, sinusitis, rhinosinusitis, nasopharyngitis. viral pharyngitis, otitis media, otitis externa, pneumonia, bronchitis, viral cough syndrome, viral syndrome, and influenza. Exam findings show no acute concerns or changes; patient is non-toxic appearing and is in no distress. Patient is appropriate for outpatient treatment and follow-up. Differential Diagnosis Differential Diagnosis: Differential diagnostic considerations for upper respiratory infection include upper respiratory infection, croup, otitis media, sinusitis, viral infection, bronchitis, influenza, pharyngitis, strep, uvulitis.? Critical Care Time Critical Care Time Critical Care Time: No Discharge Plan Discharge Clinical Impression: Bronchitis, Congestion of paranasal sinus Patient Disposition: Home Condition: Stable Instructions: Antibiotic Form, Acute Bronchitis (ED), Rhinosinusitis (ED) Additional Instructions: Increase fluids especially juices and water [id number]-[id number]-jiqsihi cough and cold medicine of your choice for your symptoms continue Zyrtec daily and include Coricidin brand decongest Tylenol or ibuprofen for any fever pain package directions Continue your inhaler/nebulizer as directed Steroids as directed--take with food heat to the face 20-30 minutes 4-6 times a day for pain Salt water gargles, throat lozenges or throat sprays as desired Antibiotic as directed--finished the medication If your symptoms persist, change or worsen significantly before you can contact your personal physician then please, without delay, go to the emergency department for further evaluation. Follow-up with PCP in 7-10 days or sooner if needed Follow up with PCP soon in regards to your blood pressure which is elevated above threshold for referral. Blood pressure above 120/80 may indicate pre-hypertension. Patient Language: [place] Prescriptions: New azithromycin 250 mg tablet See Rx Instructions .ROUTE .COMPLEX Qty: 6 0RF Rx Instructions: For 250 mg dose pack: take 500 mg today (day 1), then 250 mg for 4 days (days 2-5) prednisone 20 mg tablet 40 mg PO DAILY 5 Days Qty: 10 0RF Rx Instructions: take with food albuterol sulfate [Ventolin HFA] 90 mcg/actuation HFA aerosol inhaler 2 puff inhalation QID Qty: 8.5 0RF Rx Instructions: what ever preparation that is covered by insurance No Action diltiazem HCl 240 mg Capsule,Ext.Rel 24h Degradable 240 mg PO DAILY pantoprazole 40 mg Tablet,Delayed Release (Dr/Ec) 40 mg PO QAM cetirizine 10 mg tablet amlodipine 5 mg tablet hydrochlorothiazide 25 mg tablet albuterol sulfate 90 mcg/actuation HFA aerosol inhaler INHALATION Follow-up/Referrals: Lokesh,Senait Agosto APRN [Primary Care Provider, Unknown] Time of Disposition: 17:41 Quality Kemi Coma Scale Eyes: Open Verbal: Oriented and Alert Motor: Follows Commands [place] Coma Total Score: 15
== END 2025-07-30 17:48 | disposition home or self-care (01) ==
PROVIDERS: Emergency Provider Registered Nurse; PCP Nurse Practitioner
DX: J40 Bronchitis, not specified as acute or chronic (principal); R09.81 Nasal congestion; F17.210 Nicotine dependence, cigarettes, uncomplicated; I10 Essential (primary) hypertension
CPT/HCPCS: 99213; G0463